=== PATIENT | female | born 1935 | race Caucasian/White ===

== ENCOUNTER 2017-05-29 20:00 | Observation (INO) ==
[2017-05-29 20:28] LABS: Basophils # 0.1 K/mm3 (0-0.2); Basophils % 0.7 % (0.1-2.0); Eosinophils # 0.2 K/mm3 (0.0-0.4); Eosinophils % 2.7 % (0.1-12.0); Hemoglobin 14.7 g/dL (12.2-16.2); Lymphocytes # 3.7 K/mm3 (0.7-4.5); Lymphocytes % 44.6 K/mm3 (10-50); Mean Corpuscular HGB Conc 32.8 g/dL (31.8-35.4); Mean Corpuscular Hemoglobin 29.3 pg (27.0-31.2); Mean Corpuscular Volume 89.4 fl (81-99); Mean Platelet Volume 8.2 fl (7.4-10.4); Monocytes # 0.4 K/mm3 (0.1-1.0); Monocytes % 5.2 % (1.7-9.3); Neutrophils # 3.9 K/mm3 (1.8-7.8); Neutrophils % 46.9 % (37.0-80.0); Platelet Count 260 K/mm3 (142-424); Red Blood Count 5.03 M/mm3 (4.20-5.40); Red Cell Distribution Width 13.1 % (11.5-17.5); White Blood Count 8.3 K/mm3 (4.8-10.8)
[2017-05-29 20:52] LABS: Alanine Aminotransferase 43 U/L (12-78); Albumin Level 3.8 gm/dL (3.4-5.0); Albumin/Globulin Ratio 0.9 (1.1-1.8); Alkaline Phosphatase 97 U/L (46-116); Aspartate Amino Transferase 37 U/L (15-37); Bilirubin,Total 0.2 mg/dL (0.2-1.0); Blood Urea Nitrogen 19 mg/dL (7-18); Calcium 9.9 mg/dL (8.5-10.1); Carbon Dioxide 27 mmol/L (21.0-32.0); Chloride 102 mmol/L (98-107); Globulin 4.2 gm/dl (1.3-3.2); Glucose 211 mg/dL (74-106); Sodium 141 mmol/L (136-145)
[2017-05-29 21:04] LABS: Creatine Kinase 103 U/L (26-192)
--- NOTE | 2017-05-29 22:16 | Emergency Department Note ---
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 The time I documented below is in addition to time spent performing reported procedures but includes the following listed in this critical care notation. Medical Decision Making - Medical Records Medical records reviewed: Yes: I reviewed the patient's medical records. - Lm Inquiry Pt receiving controlled substance: No Vital Signs: 05/29/17 20:00 Temperature 97.9 F Temperature Source Oral Pulse Rate [Right Radial] 75 Respiratory Rate 15 Blood Pressure [Right Arm] 188/83 Blood Pressure Mean [Right Arm] 118 Blood Pressure Source [Right Arm] Automatic Cuff Blood Pressure Position [Right Arm] Sitting 02 Sat by Pulse Oximetry 98 Oxygen Delivery Method Room Air - Lab Data Lab results reviewed: Yes: I reviewed the patient's lab results. Lab Results 05/29/17 20:15: WBC 8.3, RBC 5.03, Hgb 14.7, Hct 45.0, MCV 89.4, MCH 29.3, MCHC 32.8, RDW 13.1, Plt Count 260, MPV 8.2, Neut % (Auto) 46.9, Lymph % (Auto) 44.6 , [place] % (Auto) 5.2, Eos % (Auto) 2.7, Baso % (Auto) 0.7, Neut # (Auto) 3.9, Lymph # (Auto) 3.7, [place] # (Auto) 0.4, Eos # (Auto) 0.2, Baso # (Auto) 0.1 05/29/17 20:15: Sodium 141, Potassium 4.0, Chloride 102, Carbon Dioxide 27, Anion Gap 16.0 H, BUN 19 H, Creatinine 0.83, Estimated Creat Clear 43, Estimated GFR 66, Est GFR ( Amer) 80, Glucose 211 H, Calcium 9.9, Total Bilirubin 0.2, AST 37, ALT 43, Alkaline Phosphatase 97, Total Creatine Kinase 103, CK-MB (CK-2) 1.1, CK-MB (CK-2) Rel Index 1.1, Troponin I < 0.02, Total Protein 8.0, Albumin 3.8, Globulin 4.2 H, Albumin/Globulin Ratio 0.9 L Result diagrams: 05/29/17 20:15 05/29/17 20:15 Orders (Tests/Meds): ED MEDICATIONS Discontinued Medications Generic Name Dose Route Start Last Admin Trade Name Freq PRN Reason Stop Dose Admin Aspirin 324 mg 05/29/17 20:24 05/29/17 20:25 Aspirin 81mg Chewable Tablet PO 05/29/17 20:25 324 mg ONCE ONE Administration ORDERS Category Date Time Status XR chest portable Stat Exams 05/29/17 20:10 Taken ECG Request by /Brandie Stat Y 05/29/17 20:10 Ordered - Radiology Data #1 Image(s): Chest Image Reviewed: Yes I reviewed the patient's radiology image Preliminary Findings: Abnormal (cm) - ECG Data Tracing #1 I reviewed this ECG and interpreted as documented below: Normal Sinus Rhythm: Yes Ischemic changes: non-specific ST-T wave changes Chest Pain HPI - General Chief Complaint: Chest Pain Stated Complaint: chest pain Time Seen by Provider: 05/29/17 22:13 Mode of Arrival: Ambulatory Source of Information: Patient, Spouse, Medical Record Limitations: No Limitations Description of Symptoms (Recalled from ER Triage Doc. by RN): Left sided chest pain. Denies SOA, Nausea, and radiating pain - History of Present Illness HPI narrative: pt with chest pain over the last 3 days - worse today - hx of htn and cad and niddm - pain is intermittant and sharp - cath with stents 6 yrs ago complaint: chest pain indicative of cardiac Onset (ago): hour(s) Duration: intermittent Activity at onset: during rest Pain location: left chest Severity: moderate Quality: sharp Risk Factors for CAD: Hypertension, Diabetes Treatments prior to or on arrival for Cardiac Chest Pain: aspirin - JANIYA Score Non-Stemi Age of patient: 65 yrs or more Number of risk factors for CAD: Presence of 3 or more Prior coronary artery stenosis(seen in coronary angiography): Less than 50% ST-Segment deviation on ECG (more than 1 min): Absent Prior aspirin intake: ASA intake in the last 7 days Severe anginal chest pain: Two or more episodes in last 24 hours Elevated cardiac markers(CK-MB or troponin): Absent Non-Stemi Risk Score: 4 - Related Data On Oral Contraceptives: No Home Medications Medication Instructions Recorded Confirmed Amlodipine Besylate [Norvasc 5mg 5 mg PO DAILY 05/29/17 05/29/17 tablet] Aspirin [Aspirin 81mg EC Tab] 81 mg PO DAILY 05/29/17 05/29/17 Atorvastatin Calcium [Atorvastatin 20 mg PO DAILY 05/29/17 05/29/17 20mg Tab] Glimepiride [Amaryl 2mg tablet] 2 mg PO BID 05/29/17 05/29/17 Lisinopril [Lisinopril 20mg Tab] 20 mg PO BID 05/29/17 05/29/17 Allergies Allergy/AdvReac Type Severity Reaction Status Date / Time fentanyl [FENTANYL] Allergy Unknown ANXIOUS Verified 05/29/17 20:08 midazolam [From VERSED] Allergy Unknown ANXIOUS Verified 05/29/17 20:08 Penicillins [PENICILLINS] Allergy Unknown Verified 05/29/17 20:08 Quinolones [QUINOLONES] Allergy Unknown Verified 05/29/17 20:08 [facility] History I have reviewed the patient's past medical history: Yes Medical History: Reports:: Diabetes Mellitus Type 2 - Social History Alcohol Intake: never - Psychiatric History Expresses thoughts of harming self/others: None Suicide Plan Description: No Plan ROS Obtained: Yes All systems reviewed & no additional complaints - Constitutional Constitutional: Denies fever(s) - Eyes Eyes: Denies change in vision - ENT Ears, Nose, Mouth, and Throat: Denies sore throat - Cardiovascular Cardiovascular: Reports chest pain, Denies irregular heart rhythm, Denies rapid heart rate - Respiratory Respiratory: No cough, No dyspnea - Gastrointestinal Gastrointestingal: Denies: abdominal pain - Genitourinary Female Genitourinary: Denies flank pain - Musculoskeletal Musculoskeletal: Denies joint pain - Integumentary/Breasts Skin/Breast: Denies rash - Neurologic Neurologic: Denies headache(s), Denies seizure-like activity Physical Exam - General General appearance: in no apparent distress - Head Head exam: normocephalic - Eye Eye exam: Present: PERRL, EOMI - ENT ENT exam: Present: mucous membranes dry - Neck Neck exam: Present: trachea midline - Respiratory Respiratory exam: Present: normal lung sounds bilaterally. Absent: respiratory distress - Cardiovascular Cardiovascular exam: Present: regular rate, systolic murmur, +S4 - Abdominal Exam Abdominal exam: Present: soft - Extremities Exam Extremities exam: Absent: calf tenderness - Neurological Exam Neurological exam: Present: alert, oriented X3, CN II-XII intact - Psychiatric Psychiatric exam: Present: normal affect - Skin Skin exam: Absent: rash
[2017-05-30 06:50] LABS: Basophils % 0.5 % (0.1-2.0); Eosinophils # 0.2 K/mm3 (0.0-0.4); Eosinophils % 2.3 % (0.1-12.0); Hematocrit 39.9 % (37.0-47.0); Lymphocytes # 3.4 K/mm3 (0.7-4.5); Lymphocytes % 41.4 K/mm3 (10-50); Mean Corpuscular HGB Conc 32.5 g/dL (31.8-35.4); Mean Corpuscular Hemoglobin 28.7 pg (27.0-31.2); Mean Corpuscular Volume 88.2 fl (81-99); Monocytes # 0.4 K/mm3 (0.1-1.0); Monocytes % 5.2 % (1.7-9.3); Neutrophils # 4.2 K/mm3 (1.8-7.8); Neutrophils % 50.6 % (37.0-80.0); Platelet Count 230 K/mm3 (142-424); Red Blood Count 4.53 M/mm3 (4.20-5.40); Red Cell Distribution Width 13.2 % (11.5-17.5); White Blood Count 8.2 K/mm3 (4.8-10.8)
[2017-05-30 07:07] LABS: Anion Gap 11.1 mEq/L (5-15); Blood Urea Nitrogen 17 mg/dL (7-18); Carbon Dioxide 28 mmol/L (21.0-32.0); Chloride 109 mmol/L (98-107); Chol/HDL Ratio 2.7 (1-3.5); Cholesterol 117 mg/dL (140-200); Glucose 138 mg/dL (74-106); HDL Cholesterol 43 mg/dL (29-89); LDL Cholesterol 51 mg/dL (0-130); Potassium 4.1 mmoL/L (3.5-5.1); Sodium 144 mmol/L (136-145); Triglycerides 114 mg/dL (30-200); VLDL Cholesterol 23 mg/dL (0-40)
[2017-05-30 07:24] LABS: Hemoglobin 13.1 g/dL (12.2-16.2)
--- NOTE | 2017-05-30 08:23 | H&P/Discharge Summary ---
General - General Admission date: 05/29/17 Discharge date: 05/30/17 *Admission Date: 05/30/17 *Chief complaint: Chest pain *History of present illness: 82-year-old white female diabetic who has had sharp chest pain underneath the left breast for the past couple of days on and off, came to the emergency department, admitted to hospital for rule out ND. This morning she feels great , no further pain. Denied diaphoresis, denied dyspnea. Denied palpitations. [facility] History I have reviewed the patient's past medical history: Yes Medical History: Reports:: Cancer (SKIN), Diabetes Mellitus Type 2, Myocardial Infarction Denies:: Diabetes Mellitus Type 1, MRSA Other Surgeries: Yes: Appendectomy, Skin Cancer Excision Amputation: No - *Social History Educational Level: Completed High School Smoking Status: Never smoker Alcohol Intake: never Occupational Status: retired Housing: house Household Members: spouse - Psychiatric History Expresses thoughts of harming self/others: None Suicide Plan Description: No Plan *Family Hx:: Cancer, Coronary Artery Disease, Diabetes, Heart Attack, Hypertension Review of Systems - Review of Systems Review of systems:: unable to obtain, other, pertinent systems reviewed and negative unless documented below - *Neurologic Denies headache(s), Denies seizure-like activity Exam Vital signs and Labs for Last 24 Hours: Temp Pulse Resp BP Pulse Ox 97.8 F 66 16 119/49 98 05/30/17 07:46 05/30/17 07:46 05/30/17 07:46 05/30/17 07:46 05/30/17 07:46 Laboratory Results - last 24 hr 05/30/17 00:20: Troponin I < 0.02 05/30/17 02:35: Troponin I < 0.02 05/30/17 06:06: POC Glucose 130 H 05/30/17 06:11: WBC 8.2, RBC 4.53, Hgb 13.1 D, Hct 39.9, MCV 88.2, MCH 28.7, MCHC 32.5, RDW 13.2, Plt Count 230, MPV 7.0 L, Neut % (Auto) 50.6, Lymph % (Auto ) 41.4, [place] % (Auto) 5.2, Eos % (Auto) 2.3, Baso % (Auto) 0.5, Neut # (Auto) 4.2, Lymph # (Auto) 3.4, [place] # (Auto) 0.4, Eos # (Auto) 0.2, Baso # (Auto) 0.0 05/30/17 06:11: Sodium 144, Potassium 4.1, Chloride 109 H, Carbon Dioxide 28, Anion Gap 11.1, BUN 17, Creatinine 0.72, Estimated Creat Clear 44, Estimated GFR 78, Est GFR ( Amer) 94, Glucose 138 H D, Troponin I < 0.02, Triglycerides 114, Cholesterol 117 L, LDL Cholesterol 51, VLDL Cholesterol 23, HDL Cholesterol 43, Cholesterol/HDL Ratio 2.7 I & O for Last 24 hours: Intake & Output 05/27/17 05/28/17 05/29/17 05/30/17 11:59 11:59 11:59 11:59 Intake Total 302 / 302 Balance 302 / 302 - Constitutional no acute distress - *Routine HEENT Exam Head: Present: normocephalic, atraumatic ENT: Present: mucous membranes moist - *Routine Neck Exam Present: supple, full ROM - Routine Chest/Breast/Axilla Exam Chest wall: Absent: tenderness, mass Breast: Absent: tenderness - *Routine Respiratory Exam Present: CTA bilaterally. Absent: accessory muscle use - *Routine Cardiovascular Exam Present: RRR, Normal S1, Normal S2. Absent: murmur, gallop - *Routine Abdominal Exam Present: soft, normoactive bowel sounds - *Routine Neurological Exam Present: alert, oriented X3 Hospital Course Hospital Course: Patient was admitted, ruled out for ND. No pvc monitor abnormalities. This morning she feels good, has had no further pain. The character of pain is very non-anginal, and patient has an appointment on Thursday. During that appointment we will refer for stress testing. Results Labs on day of discharge: Labs from last 24 hours 05/30/17 05/30/17 05/30/17 06:11 06:11 06:06 WBC 8.2 RBC 4.53 Hgb 13.1 D Hct 39.9 MCV 88.2 MCH 28.7 MCHC 32.5 RDW 13.2 Plt Count 230 MPV 7.0 L Neut % (Auto) 50.6 Lymph % (Auto) 41.4 [place] % (Auto) 5.2 Eos % (Auto) 2.3 Baso % (Auto) 0.5 Neut # (Auto) 4.2 Lymph # (Auto) 3.4 [place] # (Auto) 0.4 Eos # (Auto) 0.2 Baso # (Auto) 0.0 Sodium 144 Potassium 4.1 Chloride 109 H Carbon Dioxide 28 Anion Gap 11.1 BUN 17 Creatinine 0.72 Estimated Creat Clear 44 Estimated GFR 78 Est GFR ( Amer) 94 Glucose 138 H D POC Glucose 130 H Troponin I < 0.02 Triglycerides 114 Cholesterol 117 L LDL Cholesterol 51 VLDL Cholesterol 23 HDL Cholesterol 43 Cholesterol/HDL Ratio 2.7 05/30/17 05/30/17 02:35 00:20 WBC RBC Hgb Hct MCV MCH MCHC RDW Plt Count MPV Neut % (Auto) Lymph % (Auto) [place] % (Auto) Eos % (Auto) Baso % (Auto) Neut # (Auto) Lymph # (Auto) [place] # (Auto) Eos # (Auto) Baso # (Auto) Sodium Potassium Chloride Carbon Dioxide Anion Gap BUN Creatinine Estimated Creat Clear Estimated GFR Est GFR ( Amer) Glucose POC Glucose Troponin I < 0.02 < 0.02 Triglycerides Cholesterol LDL Cholesterol VLDL Cholesterol HDL Cholesterol Cholesterol/HDL Ratio DS: Diagnosis - Discharge Diagnosis (1) Chest pain Status: Acute (2) Diabetes mellitus Status: Acute Discharge Medications Discharge Medications: Home Medications Medication Instructions Recorded Confirmed Type Amlodipine Besylate [Norvasc 5mg 5 mg PO DAILY 05/29/17 05/30/17 History tablet] Aspirin [Aspirin 81mg EC Tab] 81 mg PO DAILY 05/29/17 05/30/17 History Atorvastatin Calcium [Atorvastatin 20 mg PO DAILY 05/29/17 05/30/17 History 20mg Tab] Glimepiride [Amaryl 2mg tablet] 2 mg PO BID 05/29/17 05/30/17 History Lisinopril [Lisinopril 20mg Tab] 20 mg PO BID 05/29/17 05/30/17 History
== END 2017-05-30 10:00 | disposition home or self-care (01) ==
LOC: ER 20:00 → 2ND 20:00
PROVIDERS: ADMIT Emergency Medicine; ATTEND Internal Medicine Adolescent Medicine

== ENCOUNTER → 2017-06-04 12:15 | Outpatient (CLI) | payer MEDICARE, SELFPAY ==
--- NOTE | 2017-06-04 12:31 | NM_ITS ---
History and Indications: Hypertension, hyperlipidemia, diabetes. Procedure: Patient received 0.4 mg of Lexiscan, resting heart rate was 67 beats per resting blood pressure 187/86, with Lexiscan maximum heart rate achieved was 100 bpm which is less than 85% of the maximum predicted heart rate and a blood pressure was 154/77. With Lexiscan patient complained of some discomfort. Electrocardiogram: Resting electrocardiogram showed sinus rhythm, with Lexiscan there is less than 1.[address] segment depression. The EKG portion of the Lexiscan Myoview is nondiagnostic. Cardiac stress and resting SPECT images: Cardiac stress and rest SPECT images were obtained using technetium 99 Myoview 31.7 mCi at stress and 10.1 mCi at rest. Gated SPECT further analysis of segmental wall motion and calculation of the ejection fraction also done. Cardiac stress and rest SPECT images show uniform myocardial activity without any segmental perfusion abnormality, computer derived ejection fraction is over 65% with no obvious regional wall motion abnormality, right ventricle is normal size and contractility. Conclusion: 1. The EKG portion of the Lexiscan Myoview is nondiagnostic. 2. No obvious scintigraphic evidence of reversible ischemia seen, computer derived ejection fraction is over 65% with no obvious regional wall motion abnormality, right ventricle is normal size and contractility. 3. Normal Lexiscan Myoview study.
--- NOTE | 2017-06-04 14:35 | HMH.ITSHM ---
glimipride lisinopril atorvastatin amlodipine aspirin omeprazole
== END ==
PROVIDERS: PCP Internal Medicine Adolescent Medicine; Visit Provider Internal Medicine Adolescent Medicine
DX: R07.9 Chest pain, unspecified (principal)
CPT/HCPCS: 78452; 93017; A9502; J2785

== ENCOUNTER 2018-02-23 08:15 | Observation (INO) ==
--- NOTE | 2018-02-23 08:49 | Emergency Department Note ---
ED Disposition Clinical Impression: Hyponatremia Community acquired pneumonia Qualifiers: Laterality: left Lung location: lower lobe of lung Qualified Code(s): J18.1 - Lobar pneumonia, unspecified organism Disposition: Still a Patient Condition on Discharge: Good Referrals: Francisco Javier West MD [Primary Care Provider] - - Critical Care Critical Care Time: No Attestation: On 02/23/18, the high probability of a clinically significant, sudden or life threatening deterioration of the following system(s) required my full and direct attention, intervention and personal management. The time I documented below is in addition to time spent performing reported procedures but includes the following listed in this critical care notation. Medical Decision Making - Lm Inquiry Pt receiving controlled substance: No Vital Signs: 02/23/18 08:50 02/23/18 09:21 02/23/18 09:24 Temperature 100.3 F H Temperature Source Oral Pulse Rate 86 Pulse Rate [Left Radial] 94 H Respiratory Rate 24 Blood Pressure [Right Arm] 143/72 H Blood Pressure Mean [Right Arm] 95 Blood Pressure Source [Right Arm] Automatic Cuff Blood Pressure Position [Right Arm] Sitting 02 Sat by Pulse Oximetry 95 97 Oxygen Delivery Method Room Air Room Air - Lab Data Lab Results 02/23/18 08:25: Influenza Type A Ag Negative, Influenza Type B Ag Negative 02/23/18 08:45: WBC 14.6 H, RBC 4.68, Hgb 13.3, Hct 40.6, MCV 86.7, MCH 28.3, MCHC 32.7, RDW 13.1, Plt Count 235, MPV 7.3 L, Neut % (Auto) 85.3 H, Lymph % (Auto) 9.3 L, [place] % (Auto) 4.8, Eos % (Auto) 0.5, Baso % (Auto) 0.2, Neut # (Auto) 12.5 H, Lymph # (Auto) 1.4, [place] # (Auto) 0.7, Eos # (Auto) 0.1, Baso # (Auto) 0.0, Total Counted 100, Neutrophils % (Manual) 90 H, Lymphocytes % (Manual) 6 L, Monocytes % (Manual) 3, Eosinophils % (Manual) 1, Platelet Estimate Normal 02/23/18 08:45: Sodium 127 L, Potassium 4.5, Chloride 91 L, Carbon Dioxide 22, Anion Gap 18.5 H, BUN 20 H, Creatinine 0.92, Estimated Creat Clear 43, Estimated GFR 59, Est GFR ( Amer) 71, Glucose 199 H, Calcium 9.0, Total Bilirubin 0.7, AST 27, ALT 26, Alkaline Phosphatase 77, Total Protein 8.0, Albumin 3.1 L, Globulin 4.9 H, Albumin/Globulin Ratio 0.6 L 02/23/18 08:45: Lactate 1.4 Result diagrams: 02/23/18 08:45 02/23/18 08:45 Orders (Tests/Meds): ED MEDICATIONS Generic Name Dose Route Start Last Admin Trade Name Freq PRN Reason Stop Dose Admin Albuterol/Ipratropium 3 ml 02/23/18 10:00 02/23/18 09:21 Duoneb 3ml Neb IH 03/25/18 09:59 3 ml QIDRT SUZY Administration Ceftriaxone Sodium 1 gm/ 50 mls @ 100 mls/hr 02/23/18 09:15 02/23/18 09:17 Sodium Chloride IV 03/09/18 09:14 100 mls/hr 0900 SUZY Administration Protocol Azithromycin 500 mg/ Sodium 250 mls @ 250 mls/hr 02/23/18 09:15 Chloride IV 03/09/18 09:14 0900 SUZY Protocol Discontinued Medications Generic Name Dose Route Start Last Admin Trade Name Freq PRN Reason Stop Dose Admin Acetaminophen 650 mg 02/23/18 09:05 02/23/18 09:17 Acetaminophen 325mg Tab PO 02/23/18 09:06 650 mg ONCE ONE Administration ORDERS Category Date Time Status Blood Culture Stat Micro 02/23/18 08:45 Received - Radiology Data #1 Image(s): Chest Image Reviewed: Yes I reviewed the patient's radiology image LLL infiltrate - Physician Consults Physician Consulted: Dale Time: 09:36 Reason -: Admission Comment/Response: Agrees to admit the patient to the hospital. We discussed the patient's clinical information, including history, exam, laboratory and radiology results and ED course. Per hospital procedure, I will write temporary bridge inpatient orders on the patient. Specific orders requested by the adm itting physician: Sliding scale insulin, normal saline, antibiotics Medical Decision Narrative: States has a prior reaction to penicillin years ago, right side of her face s welled up. General Adult HPI - General Stated complaint: flu like symptoms Time Seen by Provider: 02/23/18 08:49 - History of Present Illness HPI narrative: 6-day history of flulike symptoms. Nonproductive cough, fevers, chills, malaise, rhinorrhea, generalized weakness. Denies chest pain. Slightly short of breath. Denies vomiting or diarrhea. Initially constipated at the onset of the illness, took a laxative and had multiple bowel movements. States had pneumonia and flu vaccines this year. - Related Data Home Medications Medication Instructions Recorded Confirmed Amlodipine Besylate [Norvasc 5mg 5 mg PO DAILY 05/29/17 02/23/18 tablet] Aspirin [Aspirin 81mg EC Tab] 81 mg PO DAILY 05/29/17 02/23/18 Atorvastatin Calcium [Atorvastatin 20 mg PO DAILY 05/29/17 02/23/18 20mg Tab] Glimepiride [Amaryl 2mg tablet] 2 mg PO BID 05/29/17 02/23/18 Lisinopril [Lisinopril 20mg Tab] 20 mg PO BID 05/29/17 02/23/18 Allergies Allergy/AdvReac Type Severity Reaction Status Date / Time Penicillins [PENICILLINS] Allergy Unknown Verified 05/29/17 20:08 Quinolones [QUINOLONES] Allergy Unknown Verified 05/29/17 20:08 epinephrine Allergy Verified 05/30/17 00:38 [facility] History - Hepatitis A Screen Attestation statement:: This patient has been screened for Hepatitis A risk factors. I have reviewed the patient's past medical history: Yes Medical History: Reports:: Cancer (SKIN), Diabetes Mellitus Type 2, Myocardial Infarction Denies:: Diabetes Mellitus Type 1, MRSA Other Surgeries: Yes: Appendectomy, Skin Cancer Excision Amputation: No - Social History Smoking Status: Never smoker Alcohol Intake: never Occupational Status: retired Housing: house Household Members: spouse Family Hx:: Cancer, Coronary Artery Disease, Diabetes, Heart Attack, Hypertension ROS Obtained: Yes All systems reviewed & no additional complaints - Constitutional Constitutional: Reports chills, Reports fever(s), Reports malaise, Reports weakness - ENT Ears, Nose, Mouth, and Throat: Reports nasal discharge, Reports other (Swollen glands left side of neck a couple days ago) - Cardiovascular Cardiovascular: Denies chest pain - Respiratory Respiratory: Yes cough, Yes dyspnea, No excessive phlegm production - Gastrointestinal Gastrointestingal: Denies: diarrhea, vomiting Physical Exam - General General appearance: alert, in no apparent distress - Head Head exam: atraumatic, normocephalic - Eye Eye exam: Present: normal appearance, PERRL, EOMI - Expanded ENT Exam Comment: 1 mm vesicle/pustule on left soft palate. - Neck Neck exam: Present: normal inspection, full ROM, trachea midline. Absent: lymphadenopathy - Chest Chest inspection: Present: normal inspection, symmetric chest wall rise - Respiratory Respiratory exam: Present: other (Crackles bases) - Cardiovascular Cardiovascular exam: Present: regular rate, normal rhythm, normal heart sounds - Abdominal Exam Abdominal exam: Present: soft - Extremities Exam Extremities exam: Present: normal inspection - Neurological Exam Neurological exam: Present: alert, oriented X3 - Psychiatric Psychiatric exam: Present: normal affect, normal mood - Skin Skin exam: Present: warm, dry
[2018-02-23 08:56] LABS: Basophils % 0.2 % (0.1-2.0); Eosinophils # 0.1 K/mm3 (0.0-0.4); Eosinophils % 0.5 % (0.1-12.0); Hematocrit 40.6 % (37.0-47.0); Hemoglobin 13.3 g/dL (12.2-16.2); Lymphocytes # 1.4 K/mm3 (0.7-4.5); Lymphocytes % 9.3 % (10-50); Mean Corpuscular HGB Conc 32.7 g/dL (31.8-35.4); Mean Corpuscular Hemoglobin 28.3 pg (27.0-31.2); Mean Corpuscular Volume 86.7 fl (81-99); Mean Platelet Volume 7.3 fl (7.4-10.4); Monocytes # 0.7 K/mm3 (0.1-1.0); Monocytes % 4.8 % (1.7-9.3); Neutrophils # 12.5 K/mm3 (1.8-7.8); Neutrophils % 85.3 % (37.0-80.0); Platelet Count 235 K/mm3 (142-424); Red Blood Count 4.68 M/mm3 (4.20-5.40); Red Cell Distribution Width 13.1 % (11.5-17.5); White Blood Count 14.6 K/mm3 (4.8-10.8)
[2018-02-23 09:08] LABS: Albumin Level 3.1 gm/dL (3.4-5.0); Albumin/Globulin Ratio 0.6 (1.1-1.8); Anion Gap 18.5 mEq/L (5-15); Bilirubin,Total 0.7 mg/dL (0.2-1.0); Globulin 4.9 gm/dl (1.3-3.2); Potassium 4.5 mmoL/L (3.5-5.1)
[2018-02-23 09:24] LABS: Eosinophils % 1 % (0-3); Lymphocytes % 6 % (10-50); Monocytes % 3 % (2-9); Neutrophils % 90 % (42-76); Total Cells Counted 100
--- NOTE | 2018-02-23 15:14 | History & Physical Report ---
*Admission Date: 02/23/18 *Chief complaint: SOA, cough *History of present illness: Ms. noguera is a pleasant 82-year-old female with a history artery disease, hypertension, diabetes (not on insulin) who presents with 1 week of worsening cough, shortness of breath, fatigue. Upon presentation to the ED she was noted to have crackles. Chest x-ray obtained showing pneumonia. Admitted for management of her pneumonia due to her age, white count, shortness of breath. Denied any other symptoms, dizziness fatigue, productive cough, significant fever, nausea or vomiting, diarrhea. [facility] History I have reviewed the patient's past medical history: Yes Medical History: Reports:: Cancer (skin), Coronary Artery Disease, Diabetes Mellitus Type 2, Hyperlipidemia, Hypertension, Myocardial Infarction Denies:: Diabetes Mellitus Type 1, MRSA Have you ever received a pneumonia vaccine?: Yes Have you received a flu vaccine this season?: Yes Other Surgeries: Yes: Appendectomy, Skin Cancer Excision Amputation: No Fractures: No - *Social History Educational Level: Completed High School Smoking Status: Never smoker Alcohol Intake: never Occupational Status: retired Housing: house Household Members: spouse Travel in the last 8 weeks: None - Psychiatric History Expresses thoughts of harming self/others: None Suicide Plan Description: No Plan *Family Hx:: Cancer, Coronary Artery Disease, Diabetes, Heart Attack, Hypertension Review of Systems - Review of Systems Review of systems:: pertinent systems reviewed and negative unless documented below - *Neurologic Reports weakness Meds Home Medications Medication Instructions Recorded Confirmed Type Amlodipine Besylate [Norvasc 5mg 5 mg PO DAILY 05/29/17 02/23/18 History tablet] Aspirin [Aspirin 81mg EC Tab] 81 mg PO DAILY 05/29/17 02/23/18 History Atorvastatin Calcium [Atorvastatin 20 mg PO DAILY 05/29/17 02/23/18 History 20mg Tab] Glimepiride [Amaryl 2mg tablet] 2 mg PO BID 05/29/17 02/23/18 History Lisinopril [Lisinopril 20mg Tab] 20 mg PO BID 05/29/17 02/23/18 History Allergies Allergy/AdvReac Type Severity Reaction Status Date / Time Penicillins [PENICILLINS] Allergy Unknown Verified 02/23/18 13:58 Quinolones [QUINOLONES] Allergy Unknown Verified 02/23/18 13:58 epinephrine Allergy Verified 02/23/18 13:58 Exam Vital signs and Labs for Last 24 Hours: Temp Pulse Resp BP Pulse Ox 98.1 F 81 18 125/65 94 L 02/23/18 13:36 02/23/18 13:36 02/23/18 13:36 02/23/18 13:36 02/23/18 14:05 Laboratory Results - last 24 hr 02/23/18 08:25: Influenza Type A Ag Negative, Influenza Type B Ag Negative 02/23/18 08:45: WBC 14.6 H, RBC 4.68, Hgb 13.3, Hct 40.6, MCV 86.7, MCH 28.3, MCHC 32.7, RDW 13.1, Plt Count 235, MPV 7.3 L, Neut % (Auto) 85.3 H, Lymph % (Auto) 9.3 L, [place] % (Auto) 4.8, Eos % (Auto) 0.5, Baso % (Auto) 0.2, Neut # (Auto) 12.5 H, Lymph # (Auto) 1.4, [place] # (Auto) 0.7, Eos # (Auto) 0.1, Baso # (Auto) 0.0, Total Counted 100, Neutrophils % (Manual) 90 H, Lymphocytes % (Manual) 6 L, Monocytes % (Manual) 3, Eosinophils % (Manual) 1, Platelet Estimate Normal 02/23/18 08:45: Sodium 127 L, Potassium 4.5, Chloride 91 L, Carbon Dioxide 22, A nion Gap 18.5 H, BUN 20 H, Creatinine 0.92, Estimated Creat Clear 43, Estimated GFR 59, Est GFR ( Amer) 71, Glucose 199 H, Calcium 9.0, Total Bilirubin 0.7, AST 27, ALT 26, Alkaline Phosphatase 77, Total Protein 8.0, Albumin 3.1 L, Globulin 4.9 H, Albumin/Globulin Ratio 0.6 L 02/23/18 08:45: Lactate 1.4 I & O for Last 24 hours: Intake & Output 02/20/18 02/21/18 02/22/18 02/23/18 23:59 23:59 23:59 23:59 Intake Total 240 / 240 Balance 240 / 240 Weight 61.235 kg - Constitutional mild distress, thin Comments: Elderly - *Routine HEENT Exam Head: Present: normocephalic, atraumatic Eye: Present: EOMI, PERRL ENT: Present: mucous membranes moist - *Routine Neck Exam Present: supple. Absent: lymphadenopathy - *Routine Respiratory Exam Present: crackles Comments: Bilateral lower lobe crackles, more prominent on the left, rhonchi right middle lobe - *Routine Cardiovascular Exam Present: RRR, Normal S1. Absent: murmur - *Routine Abdominal Exam Present: soft, normoactive bowel sounds. Absent: tenderness - *Routine Rectal Exam Patient deferred: visual exam - *Routine Exam Patient deferred: external exam - *Routine Extremities Exam Absent: cyanosis, clubbing, edema - *Routine Skin Exam Present: intact. Absent: cyanosis, erythema - *Routine Neurological Exam Present: alert, oriented X3. Absent: altered mental status H&P: Result - Imaging and Cardiology Chest x-ray Status: image reviewed by me Additional comments: Left lower lobe airspace disease Assessment and Plan (1) Hypertension Current visit: Yes Status: Chronic Qualifiers: Hypertension type: essential hypertension Qualified Code(s): I10 - Essential (primary) hypertension Category: Medical Code(s): I10 - Essential (primary) hypertension Continue home regimen of amlodipine and lisinopril. (2) Hyperlipidemia Current visit: Yes Status: Chronic Qualifiers: Hyperlipidemia type: familial hypercholesterolemia Qualified Code(s): E78.01 - Familial hypercholesterolemia Category: Medical Code(s): E78.5 - Hyperlipidemia, unspecified Continue patient's home statin (3) Community acquired pneumonia Current visit: Yes Status: Acute Qualifiers: Laterality: left Lung location: lower lobe of lung Qualified Code(s): J18.1 - Lobar pneumonia, unspecified organism Category: Medical Code(s): J18.9 - Pneumonia, unspecified organism Changes present on exam with crackles, findings on chest x-ray consistent with left lower lobe pneumonia. Initiated ceftriaxone and azithromycin. Currently stable on room air.. If improves overnight, will transition to oral antibiotic therapy with possible discharge home tomorrow afternoon (4) Diabetes mellitus Current visit: No Status: Acute Qualifiers: Diabetes mellitus type: type 2 Diabetes mellitus penitentiary insulin use: with termite technician use Diabetes mellitus complication status: with unspecified complications Qualified Code(s): E11.8 - Type 2 diabetes mellitus with unspecified complications; Z79.4 - long term care administrator (current) use of insulin Category: Medical Code(s): E11.9 - Type 2 diabetes mellitus without complications Holding home oral anti-hyperglycemic agents, initiate sliding scale insulin with fingersticks before meals and at bedtime. (5) Hyponatremia Current visit: Yes Status: Acute Category: Medical Code(s): E87.1 - Hypo- osmolality and hyponatremia Suspect due to being slightly dehydrated, - administer normal saline rehydration. -Assess for improvement in the morning -No neurologic signs at this time (6) Sepsis Current visit: Yes Status: Acute Qualifiers: Sepsis type: sepsis due to unspecified organism Qualified Code(s): A41.9 - Sepsis, unspecified organism Category: Medical Code(s): A41.9 - Sepsis, unspecified organism Likely due to pneumonia with tachycardia greater than 90 on admission, leukocytosis, and source with pneumonia. -Antibiotic initiated -Blood cultures -Getting fluid resuscitation
[2018-02-23 18:44] LABS: Coronavirus 229E Not Detected (NotDetected); Coronavirus NL63 Not Detected (NotDetected); Coronavirus OC43 Not Detected (NotDetected); Coronovirus HKU1,PCR Not Detected (NotDetected)
--- NOTE | 2018-02-24 07:48 | Pharmacy Consult Notes ---
[facility] Pharmacy VTE Monitoring - Patient Demographics Admission date: 02/23/18 Report Date: 02/24/18 Time: 07:47 Allergies/Adverse Reactions: Patient Allergies Penicillins [PENICILLINS] Allergy (Unknown, Verified 02/23/18 13:58) Quinolones [QUINOLONES] Allergy (Unknown, Verified 02/23/18 13:58) epinephrine Allergy (Verified 02/23/18 13:58) Height: 1.6 m Weight: 61.235 kg Patient Problems: Current Active Problems Community acquired pneumonia (Acute) Hyponatremia (Acute) Hypertension (Chronic) Hyperlipidemia (Chronic) Hyponatremia (Acute) Sepsis (Acute) - VTE Risk Labs: VTE Related Lab Results Hgb 13.3 g/dL (12.2-16.2) 02/23/18 08:45 Hct 40.6 % (37.0-47.0) 02/23/18 08:45 Plt Count 235 K/mm3 (142-424) 02/23/18 08:45 BUN 20 mg/dL (7-18) H 02/23/18 08:45 Creatinine 0.92 mg/dL (0.55-1.02) 02/23/18 08:45 Estimated Creat Clear 43 mL/min (50-200) 02/23/18 08:45 Was VTE Risk Assessment Performed: Yes VTE Score: 2 VTE Risk Level: Low Risk - Prophylaxis VTE Prophylaxis Ordered?: Yes Types of VTE Prophylaxis: TEDS Knee High Location of Applied Device: Bilateral Lower Extremeties - VTE Diagnosis Confirmed Treatment or plan recommended: Continue Current Treatment
--- NOTE | 2018-02-24 08:03 | Discharge Summary ---
General - General Admission date:: 02/24/18 Discharge date: 02/24/18 HPI HPI: Ms. noguera is a pleasant 82-year-old female with a history artery disease, hypertension, diabetes (not on insulin) who presents with 1 week of worsening cough, shortness of breath, fatigue. Upon presentation to the ED she was noted to have crackles. Chest x-ray obtained showing pneumonia. Admitted for management of her pneumonia due to her age, white count, shortness of breath. Denied any other symptoms, dizziness fatigue, productive cough, significant fever, nausea or vomiting, diarrhea. Hospital Course Hospital Course: Patient was admitted, noted a left lower lobe pneumonia and stone stand community acquired pneumonia protocol. Patient had coughing out of proportion to sputum production. This prompted me to order an upper respiratory PCR test which the presence of RSV Influenza testing both in the rapid serologic test and in the CR test is negative Interestingly she reports that her had a febrile this 2 weeks ago now he has had lots of coughing as well in a very similar illness pattern. Patient improved night, this morning has no oxygen requirement. Eating and drinking well. Continued crackles and rhonchi in the left lower lung field but good air movement and stabilize vital signs. We will monitor her labs this morning. Plan for discharge and close follow-up in the office. Given her infiltrate we will treat with oral antibiotics for standard community acquired pneumonia protocols but I have discussed with the etiology of RAD and her need for fluid support, rest and nutritional support at home. Objective Vital signs: Temp Pulse Resp BP Pulse Ox 98.3 F 84 18 100/45 L 95 02/24/18 04:00 02/24/18 06:17 02/24/18 04:00 02/24/18 04:00 02/24/18 06:17 Narrative: Alert. Oriented x3. Sitting on the side of the bed. Eating and drinking well. No calf room air oxygen in the mid 90% range. Vital signs are normal. Heart rate regular. Oropharynx moist no cranial nerve deficit. Abdomen soft. Lungs have rhonchi and some minimal expiry crackles at end expiration on the left lower lung field. Right side is fairly clear. No clubbing cyanosis. Results Labs on day of discharge: Labs from last 24 hours 02/24/18 02/23/18 02/23/18 06:19 20:55 18:40 WBC RBC Hgb Hct MCV MCH MCHC RDW Plt Count MPV Neut % (Auto) Lymph % (Auto) [place] % (Auto) Eos % (Auto) Baso % (Auto) Neut # (Auto) Lymph # (Auto) [place] # (Auto) Eos # (Auto) Baso # (Auto) Total Counted Neutrophils % (Manual) Lymphocytes % (Manual) Monocytes % (Manual) Eosinophils % (Manual) Platelet Estimate Sodium Potassium Chloride Carbon Dioxide Anion Gap BUN Creatinine Estimated Creat Clear Estimated GFR Est GFR ( Amer) Glucose POC Glucose 147 H 160 H Lactate Calcium Total Bilirubin AST ALT Alkaline Phosphatase Total Protein Albumin Globulin Albumin/Globulin Ratio Chlamy pneumoniae PCR Not detected Adenovirus (PCR) Not detected B. pertussis DNA (PCR) Not detected Coronavirus OC43 (PCR) Not detected Coronavirus HKU1 (PCR) Not detected Coronavirus 229E (PCR) Not detected Coronavirus NL63 (PCR) Not detected Human Metapneumovir PCR Not detected Influenza A (H1) PCR Not detected Influ A (H1N1/09) PCR Not detected Influenza A (H3) PCR Not detected Influenza Type A Ag Influenza Type A (PCR) Not detected Influenza Type B Ag Influenza Type B (PCR) Not detected Mycoplasma pneumon IgM M. pneumoniae (PCR) Not detected Parainfluenza 1 (PCR) Not detected Parainfluenza 2 (PCR) Not detected Parainfluenza 3 (PCR) Not detected Parainfluenza 4 (PCR) Not detected RSV (PCR) Detected A Entero/Rhino (PCR) Not detected 02/23/18 02/23/18 02/23/18 16:08 08:45 08:45 WBC RBC Hgb Hct MCV MCH MCHC RDW Plt Count MPV Neut % (Auto) Lymph % (Auto) [place] % (Auto) Eos % (Auto) Baso % (Auto) Neut # (Auto) Lymph # (Auto) [place] # (Auto) Eos # (Auto) Baso # (Auto) Total Counted Neutrophils % (Manual) Lymphocytes % (Manual) Monocytes % (Manual) Eosinophils % (Manual) Platelet Estimate Sodium Potassium Chloride Carbon Dioxide Anion Gap BUN Creatinine Estimated Creat Clear Estimated GFR Est GFR ( Amer) Glucose POC Glucose 279 H Lactate 1.4 Calcium Total Bilirubin AST ALT Alkaline Phosphatase Total Protein Albumin Globulin Albumin/Globulin Ratio Chlamy pneumoniae PCR Adenovirus (PCR) B. pertussis DNA (PCR) Coronavirus OC43 (PCR) Coronavirus HKU1 (PCR) Coronavirus 229E (PCR) Coronavirus NL63 (PCR) Human Metapneumovir PCR Influenza A (H1) PCR Influ A (H1N1/) PCR Influenza A (H3) PCR Influenza Type A Ag Influenza Type A (PCR) Influenza Type B Ag Influenza Type B (PCR) Mycoplasma pneumon IgM Non-reactive M. pneumoniae (PCR) Parainfluenza 1 (PCR) Parainfluenza 2 (PCR) Parainfluenza 3 (PCR) Parainfluenza 4 (PCR) RSV (PCR) Entero/Rhino (PCR) 02/23/18 02/23/18 02/23/18 08:45 08:45 08:25 WBC 14.6 H RBC 4.68 Hgb 13.3 Hct 40.6 MCV 86.7 MCH 28.3 MCHC 32.7 RDW 13.1 Plt Count 235 MPV 7.3 L Neut % (Auto) 85.3 H Lymph % (Auto) 9.3 L [place] % (Auto) 4.8 Eos % (Auto) 0.5 Baso % (Auto) 0.2 Neut # (Auto) 12.5 H Lymph # (Auto) 1.4 [place] # (Auto) 0.7 Eos # (Auto) 0.1 Baso # (Auto) 0.0 Total Counted 100 Neutrophils % (Manual) 90 H Lymphocytes % (Manual) 6 L Monocytes % (Manual) 3 Eosinophils % (Manual) 1 Platelet Estimate Normal Sodium 127 L Potassium 4.5 Chloride 91 L Carbon Dioxide 22 Anion Gap 18.5 H BUN 20 H Creatinine 0.92 Estimated Creat Clear 43 Estimated GFR 59 Est GFR ( Amer) 71 Glucose 199 H POC Glucose Lactate Calcium 9.0 Total Bilirubin 0.7 AST 27 ALT 26 Alkaline Phosphatase 77 Total Protein 8.0 Albumin 3.1 L Globulin 4.9 H Albumin/Globulin Ratio 0.6 L Chlamy pneumoniae PCR Adenovirus (PCR) B. pertussis DNA (PCR) Coronavirus OC43 (PCR) Coronavirus HKU1 (PCR) Coronavirus 229E (PCR) Coronavirus NL63 (PCR) Human Metapneumovir PCR Influenza A (H1) PCR Influ A (H1N1/09) PCR Influenza A (H3) PCR Influenza Type A Ag Negative Influenza Type A (PCR) Influenza Type B Ag Negative Influenza Type B (PCR) Mycoplasma pneumon IgM M. pneumoniae (PCR) Parainfluenza 1 (PCR) Parainfluenza 2 (PCR) Parainfluenza 3 (PCR) Parainfluenza 4 (PCR) RSV (PCR) Entero/Rhino (PCR) DS: Diagnosis - Discharge Diagnosis (1) Hypertension Status: Chronic (2) Hyperlipidemia Status: Chronic (3) Community acquired pneumonia Status: Acute (4) Diabetes mellitus Status: Chronic (5) Hyponatremia Status: Acute (6) Sepsis Status: Ruled-out (7) RSV bronchiolitis Status: Acute Discharge Plan - Patient Discharge Instructions ACTIVITY: Continue current activity, Limited activity DIET: continue same diet Patient Instructions: Pneumonia-Adult, Hyponatremia-Adult - Follow up Plan Follow up with: Crys Sherman APRN [Nurse Practitioner] - 03/03/18 Disposition: Home, Self-Long-Term Medications: Home Medications Medication Instructions Recorded Confirmed Type Amlodipine Besylate [Norvasc 5mg 5 mg PO DAILY 05/29/17 02/23/18 History tablet] Aspirin [Aspirin 81mg EC Tab] 81 mg PO DAILY 05/29/17 02/23/18 History Atorvastatin Calcium [Atorvastatin 20 mg PO DAILY 05/29/17 02/23/18 History 20mg Tab] Glimepiride [Amaryl 2mg tablet] 2 mg PO BID 05/29/17 02/23/18 History Lisinopril [Lisinopril 20mg Tab] 20 mg PO BID 05/29/17 02/23/18 History Azithromycin [Zithromax 250mg 250 mg PO DIRECTED #6 tab 02/24/18 Rx tab] Cefdinir [Omnicef 300mg Capsule] 300 mg PO BID #14 cap 02/24/18 Rx Promethazine/Dextromethorphan 5 ml PO Q6HP PRN #240 ml 02/24/18 Rx [Promethazine-Dm Syrup] Prescriptions/Medication Reconciliation: New Azithromycin [Zithromax 250mg tab] 250 mg PO DIRECTED #6 tab Cefdinir [Omnicef 300mg Capsule] 300 mg PO BID #14 cap Promethazine/Dextromethorphan [Promethazine-Dm Syrup] 5 ml PO Q6HP PRN #240 ml PRN Reason: Cough Continue Lisinopril [Lisinopril 20mg Tab] 20 mg PO BID Glimepiride [Amaryl 2mg tablet] 2 mg PO BID Amlodipine Besylate [Norvasc 5mg tablet] 5 mg PO DAILY Aspirin [Aspirin 81mg EC Tab] 81 mg PO DAILY Atorvastatin Calcium [Atorvastatin 20mg Tab] 20 mg PO DAILY
[2018-02-24 08:05] LABS: Anion Gap 17.5 mEq/L (5-15); Calcium 8.2 mg/dL (8.5-10.1); Potassium 3.5 mmoL/L (3.5-5.1)
[2018-02-24 09:33] LABS: Basophils % 0.2 % (0.1-2.0); Eosinophils % 0.2 % (0.1-12.0); Hematocrit 35.2 % (37.0-47.0); Hemoglobin 11.2 g/dL (12.2-16.2); Lymphocytes # 1.4 K/mm3 (0.7-4.5); Lymphocytes % 11.7 % (10-50); Mean Corpuscular HGB Conc 31.9 g/dL (31.8-35.4); Mean Corpuscular Hemoglobin 28.3 pg (27.0-31.2); Mean Corpuscular Volume 88.7 fl (81-99); Mean Platelet Volume 7.3 fl (7.4-10.4); Monocytes # 0.7 K/mm3 (0.1-1.0); Monocytes % 5.8 % (1.7-9.3); Neutrophils # 9.9 K/mm3 (1.8-7.8); Neutrophils % 82.2 % (37.0-80.0); Platelet Count 254 K/mm3 (142-424); Red Blood Count 3.97 M/mm3 (4.20-5.40); Red Cell Distribution Width 13.2 % (11.5-17.5); White Blood Count 12.1 K/mm3 (4.8-10.8)
== END 2018-02-24 10:58 | disposition home or self-care (01) ==
LOC: ICU 08:15 → ER 08:15 → ICU 13:14
PROVIDERS: ADMIT Internal Medicine Adolescent Medicine; ATTEND Internal Medicine Adolescent Medicine
CPT/HCPCS: 36415; 71020; 71046; 80048; 80053; 82962; 83605; 85007; 85025; 86738; 87040; 87070; 87205; 87275; 87276; 87486; 87581; 87633; 87798; 94640; 96365; 96367; 99284; G0378; J0456

== ENCOUNTER → 2018-03-18 16:55 | Outpatient (CLI) | payer MEDICARE, SELFPAY ==
--- NOTE | 2018-03-18 17:15 | XR_ITS ---
XR chest 2V HISTORY: ITS.REASON: WHEEZING ORDERING PHYSICIAN: Mirtha Hope PATIENT AGE: 82 years COMPARISON: 02/23/2018 FINDINGS: The cardiomediastinal silhouette and pulmonary vascularity are within normal limits. Chronic changes are present in the lung bases. No lobar consolidation or collapse. No acute bony anomalies. IMPRESSION: No change acute finding
[2018-03-18 17:20] LABS: Basophils # 0.1 K/mm3 (0-0.2); Basophils % 0.7 % (0.1-2.0); Eosinophils # 0.3 K/mm3 (0.0-0.4); Hematocrit 42.9 % (37.0-47.0); Hemoglobin 13.8 g/dL (12.2-16.2); Lymphocytes # 3.6 K/mm3 (0.7-4.5); Lymphocytes % 41.9 % (10-50); Mean Corpuscular HGB Conc 32.1 g/dL (31.8-35.4); Mean Corpuscular Hemoglobin 28.2 pg (27.0-31.2); Mean Corpuscular Volume 87.9 fl (81-99); Mean Platelet Volume 6.6 fl (7.4-10.4); Monocytes # 0.5 K/mm3 (0.1-1.0); Monocytes % 5.3 % (1.7-9.3); Neutrophils # 4.2 K/mm3 (1.8-7.8); Neutrophils % 49.2 % (37.0-80.0); Platelet Count 260 K/mm3 (142-424); Red Blood Count 4.87 M/mm3 (4.20-5.40); Red Cell Distribution Width 13.3 % (11.5-17.5); White Blood Count 8.6 K/mm3 (4.8-10.8)
[2018-03-18 18:45] LABS: Anion Gap 13.1 mEq/L (5-15); Blood Urea Nitrogen 20 mg/dL (7-18); Calcium 9.6 mg/dL (8.5-10.1); Carbon Dioxide 29 mmol/L (21.0-32.0); Chloride 101 mmol/L (98-107); Creatinine,Serum 0.81 mg/dL (0.55-1.02); Estimated Glomerular Filt Rate 68 ml/min (>60); GFR (African American) 82 ML/MIN (>60); Glucose 185 mg/dL (74-106); Potassium 4.1 mmoL/L (3.5-5.1); Sodium 139 mmol/L (136-145)
== END ==
PROVIDERS: Visit Provider Nurse Practitioner Family
DX: R06.2 Wheezing (principal)
CPT/HCPCS: 36415; 71046; 80048; 85025

== ENCOUNTER → 2020-09-11 10:49 | Outpatient (CLI) | payer MEDICARE, SELFPAY ==
[2020-09-11 11:14] LABS: Basophils # 0.1 K/mm3 (0-0.2); Basophils % 0.6 % (0.1-2.0); Eosinophils # 0.2 K/mm3 (0.0-0.4); Eosinophils % 2.8 % (0.1-12.0); Hematocrit 44.6 % (37.0-47.0); Hemoglobin 14.9 g/dL (12.2-16.2); Lymphocytes # 3.1 K/mm3 (0.7-4.5); Lymphocytes % 38.6 % (10-50); Mean Corpuscular HGB Conc 33.4 g/dL (31.8-35.4); Mean Corpuscular Hemoglobin 29.1 pg (27.0-31.2); Mean Platelet Volume 7.4 fl (7.4-10.4); Monocytes # 0.4 K/mm3 (0.1-1.0); Monocytes % 4.9 % (1.7-9.3); Neutrophils # 4.2 K/mm3 (1.8-7.8); Platelet Count 246 K/mm3 (142-424); Red Blood Count 5.13 M/mm3 (4.20-5.40); Red Cell Distribution Width 13.6 % (11.5-17.5); White Blood Count 7.9 K/mm3 (4.8-10.8)
[2020-09-11 11:17] LABS: Hemoglobin A1C 6.6 % (4.0-6.0)
[2020-09-11 11:35] LABS: Chloride 106 mmol/L (98-107); Sodium 141 mmol/L (136-145)
[2020-09-11 11:36] LABS: Potassium 4.4 mmoL/L (3.5-5.1)
[2020-09-11 11:38] LABS: Alanine Aminotransferase 22 U/L (12-78); Albumin Level 4.3 g/dl (3.5-5.0); Albumin/Globulin Ratio 1.5 (1.1-1.8); Alkaline Phosphatase 80 U/L (38-126); Anion Gap 13.4 mEq/L (5-15); Aspartate Amino Transferase 31 U/L (14-36); Bilirubin,Total 0.4 mg/dl (0.2-1.3); Blood Urea Nitrogen 12 mg/dl (7-17); Calcium 9.3 mg/dl (8.4-10.2); Carbon Dioxide 26 mmol/L (22.0-30.0); Chol/HDL Ratio 2.9 (1-3.5); Cholesterol 133 mg/dl (140-200); Estimated Glomerular Filt Rate 80 ml/min (>60); GFR (African American) 97 ML/MIN (>60); Globulin 2.9 g/dL (1.3-3.2); Glucose 125 mg/dl (74-100); HDL Cholesterol 46 mg/dl (40-60); Total Protein,Serum 7.2 g/dl (6.3-8.2); Triglycerides 140 mg/dl (30-150); VLDL Cholesterol 28 mg/dL (0-40)
[2020-09-11 11:49] LABS: Direct LDL Cholesterol 58.49 mg/dL (100-129)
[2020-09-11 12:09] LABS: Thyroid Stimulating Hormone 2.02 uIU/mL (0.465-4.68)
== END ==
PROVIDERS: Visit Provider Internal Medicine Adolescent Medicine
DX: E78.2 Mixed hyperlipidemia (principal); E11.9 Type 2 diabetes mellitus without complications; Z79.84 Long term (current) use of oral hypoglycemic drugs
CPT/HCPCS: 36415; 80053; 80061; 83036; 84443; 85025

== ENCOUNTER → 2020-12-11 10:37 | Outpatient (CLI) | payer MEDICARE, SELFPAY ==
[2020-12-11 11:04] LABS: Basophils # 0.1 K/mm3 (0-0.2); Basophils % 1.1 % (0.1-2.0); Eosinophils # 0.2 K/mm3 (0.0-0.4); Eosinophils % 1.8 % (0.1-12.0); Hematocrit 47.6 % (37.0-47.0); Lymphocytes # 3.3 K/mm3 (0.7-4.5); Mean Corpuscular HGB Conc 31.6 g/dL (31.8-35.4); Mean Corpuscular Hemoglobin 28.7 pg (27.0-31.2); Mean Corpuscular Volume 90.7 fl (81-99); Monocytes # 0.4 K/mm3 (0.1-1.0); Monocytes % 4.7 % (1.7-9.3); Neutrophils # 4.2 K/mm3 (1.8-7.8); Neutrophils % 51.4 % (37.0-80.0); Platelet Count 281 K/mm3 (142-424); Red Blood Count 5.24 M/mm3 (4.20-5.40); Red Cell Distribution Width 13.5 % (11.5-17.5); White Blood Count 8.1 K/mm3 (4.8-10.8)
[2020-12-11 11:24] LABS: Hemoglobin A1C 7.1 % (4.0-6.0)
[2020-12-11 11:47] LABS: Chloride 106 mmol/L (98-107); Potassium 4.9 mmoL/L (3.5-5.1); Sodium 140 mmol/L (136-145)
[2020-12-11 11:49] LABS: Blood Urea Nitrogen 19 mg/dl (7-17); Estimated Glomerular Filt Rate 95 ml/min (>60); GFR (African American) 116 ML/MIN (>60)
[2020-12-11 11:50] LABS: Alanine Aminotransferase 18 U/L (12-78); Albumin Level 4.3 g/dl (3.5-5.0); Albumin/Globulin Ratio 1.3 (1.1-1.8); Alkaline Phosphatase 105 U/L (38-126); Anion Gap 12.9 mEq/L (5-15); Aspartate Amino Transferase 29 U/L (14-36); Carbon Dioxide 26 mmol/L (22.0-30.0); Globulin 3.3 g/dL (1.3-3.2); Glucose 153 mg/dl (74-100); Total Protein,Serum 7.6 g/dl (6.3-8.2)
[2020-12-11 11:51] LABS: Bilirubin,Total 0.1 mg/dl (0.2-1.3)
== END ==
PROVIDERS: Visit Provider Internal Medicine Adolescent Medicine
DX: E11.9 Type 2 diabetes mellitus without complications (principal); Z79.84 Long term (current) use of oral hypoglycemic drugs
CPT/HCPCS: 36415; 80053; 83036; 85025

== ENCOUNTER → 2021-07-24 12:09 | Outpatient (CLI) | payer MEDICARE, SELFPAY ==
--- NOTE | 2021-07-24 | CA_ITS ---
APPROVED REPORT Exam: Pharmacologic Technologist: Destinee Eastman, Ht: 5 ft 3 in Wt: 118 lbs BSA: 1.54 m2 HR: 73 bpm BP: 170/71 mmHg Rhythm: NSR, SLOW R WAVE PROGRESSION Medical History Medical History: HTN, Hyperlipidemia, Diabetes Medications: Amlodipine,,,,, Lisinopril,,,,, Asa,,,,, Atorvastatin,,,,, Glimepiride,,,,, Allergies: PENICILLIN, QUINOLONES, EPINEPHRINE Cardiac Risk Factors: HTN, Hyperlipidemia, Diabetes Stress Test Details Test: LEXISCAN HR Resting HR: 70 bpm Max Heart Rate (APMHR): 136.302944 bpm Max HR Achieved: 105 bpm Target HR (85% APMHR): 115.709857 bpm % of APMHR: 77.21 Recovery HR: 75 bpm BP Resting BP: 170/71 mmHg Max BP: 170/71 mmHg Recovery BP: 163.0/73.0 mmHg ECG Resting ECG: NSR, SLOW R WAVE PROGRESSION Clinical Exercise duration: 04:01 min Highest Stage Achieved: Stress ECG Conclusion PT BECAME SOA, MALAISE 1 MINUTE RECOVERY: AMINOPHYLIINE 100 MG SLOW IV GIVEN 2 MINUTE RECOVERY: PT FEELS BETTER 5 MINUTE RECOVERY: SHAKEY BUT OTHERWISE FEELS OK NO CP. NO SIGNIFICANT CHANGES UNREMARKABLE LEXISCAN STRESS MYOVIEW IMAGES REPORTED SEPARATELY Electronically signed by : Amaury Ly MD 07/24/2021 17:18:32
--- NOTE | 2021-07-24 12:17 | NM_ITS ---
APPROVED REPORT Exam: Nuclear Stress Test Indication: short of breath..fatigue Patient Location: Outpatient Stress Tech: Destinee Eastman MA Tech:Milady See ARRT, RT (R)(N) Ht: 5 ft 3 in Wt: 118 lbs Bra Size: 38b HR: 70 bpm BP: 170/71 mmHg BSA: 1.54 m2 TID: 0.86 BMI: 20.9 History: short of breath..fatigue Procedure: Patient received a 0.4 mg of intravenous Lexiscan, resting heart rate 70 bpm, resting blood pressure 170/71 mmHg, with Lexiscan maximum heart rate achived was 105 bpm which is Less than 85 % of the maximum predicted heart rate and blood pressure was 170/71 mmHg. With Lexiscan, patient denied any complaint of chest pain. Electrocardiogram Resting electrocardiogram shows sinus rhythm, with Lexiscan there is less than 1.[address] segment depression from the baseline EKG. The EKG portion of the Lexiscan is nondiagnostic. Cardiac Stress and Resting SPECT Images: Cardiac Stress and Resting SPECT images were obtained using technetium 99m Myoview 32.4 mCi stress and 10.81 mCi at rest. Gated SPECT for analysis of segmental wall motion and calculation of the ejection fraction also done. Cardiac stress and resting SPECT images show uniform myocardial activity without segmental perfusion abnormality, computer derived ejection fraction is over 65% with no regional wall motion abnormality, right ventricle is mildly enlarged with normal contractility. Conclusion: 1. The EKG portion of the Lexiscan is nondiagnostic. 2. No scintigraphic evidence of reversible ischemia seen, computer derived ejection fraction is over 65% with no regional wall motion abnormality, right ventricle is mildly enlarged with normal contractility. 3. Normal Lexiscan Myoview study. Electronically signed by : Amaury Ly MD 07/24/2021 17:21:28
--- NOTE | 2021-07-24 12:50 | CA_ITS ---
APPROVED REPORT EXAM: Comprehensive 2D, Doppler, and color-flow Echocardiogram Copy Director: Alexandra Ayon RVT Ht: 5 ft 3 in Wt: 118lbs BSA: 1.54 BP: 160/60 mmHg Indications: SOA,CAD,ABN EKG,FATIGUE,DIZZINESS,DM,HTN 2D Dimensions LVOT 1.93 cm (M/F) 1.5-2.5 M-Mode Dimensions RVDd 2.55 cm (0.9-2.6) LA Diam 3.23 cm (1.9-4.0) LVDd 3.96 cm (3.5-5.7) Ao Diam 2.47 cm (2.0-3.7) LVDs 2.55 cm (3.5-5.7) IVSd 1.11 cm (0.6-1.1) PWd 0.57 cm (0.6-1.1) EF (Teich) 65.70% FS 35.60% EDV (Teich) 68.30 mL TAPSE 1.51 (<1.7) ESV (Teich) 23.40 mL LV Diastology E Decel Time 177.00 (160-240 msec) E/A Ratio 0.5 MED E' 7.90 (< 7 cm/sec) E'/MED E' Ratio 7.92 (>14) LAT E' 5.90 (<10 cm/sec) E/LAT E' Ratio 10.61 (>14) Aortic Valve AO Peak GR. 6.80 mmHg Mitral Valve MV E Max Cody. 63.00 (40-130 cm/s) MV A Velocity 115.00 (40-130 cm/s) E/A Ratio 0.55 MV Decel. Time 177.00 (160-240 ms) MV PHT 52.00 ms Pulmonary Valve PV Peak Velocity 82.00 (50-150 cm/s) Tricuspid Valve TR P. Velocity 268.00 cm/s RAP Estimate 10.00 mmHg RVSP 38.80 mmHg Left Ventricle Left atrium is mildly enlarged, left ventricle is normal size, mild concentric left ventricular hypertrophy, estimated ejection fraction 55% with no regional wall motion abnormality, grade 1 diastolic dysfunction seen without tissue Doppler evidence of atrial atrial pressure. Right Ventricle Right atrium right ventricle mildly enlarged with normal contractility. Aortic Valve Aortic valve is thickened and calcified without aortic stenosis aortic insufficiency. Mitral Valve Mitral valve leaflets are minimally thickened, there is mild mitral regurgitation. Tricuspid Valve Tricuspid grossly normal, there is mild tricuspid regurgitation, tricuspid rotation jet velocity is inadequate for calculation of the right ventricular systolic pressure. Pulmonic Valve Pulmonic valve is poorly visualized. Great Vessels Aortic root is normal size. Inferior vena cava normal size with normal inspiratory collapse. Pericardium No significant pericardial effusion noted. Conclusion 1. Mild biatrial enlargement, normal left ventricular size, mild concentric left ventricular hypertrophy, estimated ejection fraction 55% with no regional wall motion abnormality, grade 1 diastolic dysfunction seen without tissue Doppler evidence of raise left atrial pressure. 2. Mildly enlarged right ventricle with normal contractility. 3. Mild mitral and tricuspid rotation. 4. No significant pericardial effusion. 5. Inferior vena cava normal size and normal inspiratory collapse. Electronically signed by : Amaury Ly MD 07/24/2021 16:50:35
--- NOTE | 2021-07-24 12:50 | CA_ITS ---
FINAL REPORT TECHNIQUE: Color Doppler, duplex Doppler and goode scale sonography of the bilateral neck arterial vasculature was performed. Velocities were measured in the carotid arteries. Stenosis evaluation based on the validated velocity criteria. CLINICAL HISTORY: left carotid bruit FINDINGS: The peak systolic velocity of the right common carotid artery is 54 cm/s. The peak systolic velocity of the right internal carotid artery is 135 cm/s and end diastolic velocity 26 cm/s. The ICA/CCA ratio is 2.95. A small amount of plaque is present. The right external carotid artery is patent. The right vertebral artery is patent with antegrade flow. The peak systolic velocity of the left common carotid artery is 75 cm/s. The peak systolic velocity of the left internal carotid artery is 547 cm/s and end diastolic velocity 203 cm/s. The ICA/CCA ratio is 9.36. A large amount of plaque is present. The left external carotid artery is patent.The left vertebral artery is patent with antegrade flow. IMPRESSION: Less than 50% carotid stenosis on the left. Greater than 70% carotid stenosis on the right. If indicated, CTA or MRA could further evaluate. Reviewed, Interpreted and Dictated by Leonardo Flanagan III, MD Transcribed by Mireille Bell Authenticated and . [facility]
--- NOTE | 2021-07-24 13:45 | HMH.ITSHM ---
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 []LISINOPRIL GLIMEPIRIDE BISOPROLOL ATORVASTATIN ASA AMLODIPINE
== END ==
PROVIDERS: PCP Internal Medicine Adolescent Medicine; Visit Provider Nurse Practitioner Family
DX: E11.9 Type 2 diabetes mellitus without complications (principal); E78.5 Hyperlipidemia, unspecified; I10 Essential (primary) hypertension; I25.10 Atherosclerotic heart disease of native coronary artery without angina pectoris; R06.00 Dyspnea, unspecified; R53.1 Weakness; R94.31 Abnormal electrocardiogram [ECG] [EKG]; R09.89 Other specified symptoms and signs involving the circulatory and respiratory systems; Z79.84 Long term (current) use of oral hypoglycemic drugs
CPT/HCPCS: 78452; 93017; 93306; 93880; A9502; J0280; J2785

== ENCOUNTER → 2021-07-30 12:49 | Outpatient (CLI) | payer MEDICARE, SELFPAY ==
--- NOTE | 2021-07-30 12:56 | CT_ITS ---
FINAL REPORT TECHNIQUE: Thin section axial CT with IV contrast supplemented with multiplanar reconstruction under CT angiogram protocol. This study was performed with techniques to keep radiation doses as low as reasonably achievable (ALARA). Individualized dose reduction techniques using automated exposure control or adjustment of mA and/or kV according to the patient's size were employed. NASCET criteria was utilized during interpretation. CLINICAL HISTORY: CORONARY ARTERY STENOSIS FINDINGS: Aortic arch: Arch shows no significant narrowing. Great vessel origins are widely patent. Right carotid: No significant stenosis is seen of the cervical common carotid artery. There is heavily calcified plaque at the carotid bulb with approximately 50% stenosis. There is mild stenosis of the distal internal carotid artery. The external carotid artery is patent. The right vertebral artery is patent. Left carotid: No significant stenosis is seen of the cervical common carotid artery. There is heavily calcified plaque at the level of the carotid bulb. There is 70% stenosis of the left internal carotid artery at the bulb. The more distal internal carotid artery is patent without significant stenosis. The left vertebral artery is patent. Vertebral: Right vertebral artery is dominant. No significant stenosis is present. IMPRESSION: 70% stenosis of the left carotid bulb, 50% stenosis of the right carotid bulb. Reviewed, Interpreted and Dictated by Leonardo Flanagan III, MD Transcribed by Rekha Duong Authenticated and [facility]
== END ==
PROVIDERS: PCP Internal Medicine Adolescent Medicine; Visit Provider Nurse Practitioner
DX: E11.9 Type 2 diabetes mellitus without complications (principal); E78.5 Hyperlipidemia, unspecified; I10 Essential (primary) hypertension; I25.10 Atherosclerotic heart disease of native coronary artery without angina pectoris; R06.00 Dyspnea, unspecified; R09.89 Other specified symptoms and signs involving the circulatory and respiratory systems; R42 Dizziness and giddiness; R94.31 Abnormal electrocardiogram [ECG] [EKG]; I65.23 Occlusion and stenosis of bilateral carotid arteries; Z79.84 Long term (current) use of oral hypoglycemic drugs
CPT/HCPCS: 70498; Q9967

== ENCOUNTER → 2022-10-14 09:31 | Outpatient (POV) | payer MEDICARE, SELFPAY | PROVIDERS: Visit Provider Dermatology | DX: Z00.00 Encounter for general adult medical examination without abnormal findings (principal) ==

== ENCOUNTER 2023-02-11 13:14 | Outpatient (CLI) | payer MEDICARE, SELFPAY ==
--- NOTE | 2023-02-11 | XR_ITS ---
FINAL REPORT CLINICAL HISTORY: soa, cough COMPARISON: 03/18/2018 FINDINGS: Two views of the chest were obtained. The heart size and pulmonary vascularity are within normal limits. The mediastinum is normal. There is worsening of persistent interstitial opacities since the prior exam, would favor interstitial fibrosis. There is worsening of the left lung opacity, and superimposed pneumonia is not excluded. There is no pneumothorax. The bony thorax is intact. IMPRESSION: Worsening of persistent interstitial opacities since the prior exam, favor interstitial fibrosis. Worsening of the left lung opacity, and superimposed pneumonia is not excluded. Recommend follow-up radiographs to document improvement. Reviewed, Interpreted and Dictated by Leonardo Flanagan III, MD Transcribed by Suzanna Mcdowell Authenticated and [facility]
== END 2023-02-11 23:59 ==
LOC: RAD 13:16
PROVIDERS: PCP Internal Medicine Adolescent Medicine; Visit Provider Internal Medicine Adolescent Medicine
DX: J18.0 Bronchopneumonia, unspecified organism (principal); R05.1 Acute cough
CPT/HCPCS: 71046

== ENCOUNTER 2023-04-21 13:54 | Outpatient (POV) | payer MEDICARE, SELFPAY | END 2023-04-21 23:59 | disposition home or self-care (01) | LOC: SC 13:54 | PROVIDERS: PCP Internal Medicine Adolescent Medicine; Visit Provider Dermatology | DX: Z00.00 Encounter for general adult medical examination without abnormal findings (principal) ==

== ENCOUNTER 2023-06-15 15:32 | Outpatient (CLI) | payer MEDICARE, SELFPAY ==
--- NOTE | 2023-06-15 15:44 | XR_ITS ---
FINAL REPORT CLINICAL HISTORY: soa, nonsmoker COMPARISON: 03/18/2018 FINDINGS: Two views of the chest were obtained. The heart size and pulmonary vascularity are within normal limits. The mediastinum is normal. There is moderate fibrosis or scarring, worse compared to the prior study. There is no pneumothorax. The bony thorax is intact. IMPRESSION: Worsening moderate fibrosis or scarring Reviewed, Interpreted and Dictated by Leonardo Flanagan III, MD Transcribed by Sarah Andrews Authenticated and [facility]
== END 2023-06-15 23:59 | disposition home or self-care (01) ==
LOC: RAD 15:33
PROVIDERS: PCP Internal Medicine Adolescent Medicine; Visit Provider Internal Medicine Adolescent Medicine
DX: R06.09 Other forms of dyspnea (principal); R63.4 Abnormal weight loss
CPT/HCPCS: 71046

== ENCOUNTER 2023-06-16 11:47 | Outpatient (CLI) | payer MEDICARE, SELFPAY ==
[2023-06-16 12:35] LABS: Basophils # 0.1 K/mm3 (0-0.2); Basophils % 0.9 % (0.1-2.0); Eosinophils # 0.2 K/mm3 (0.0-0.4); Eosinophils % 1.8 % (0.1-12.0); Hemoglobin 14.2 g/dL (12.2-16.2); Lymphocytes # 3.1 K/mm3 (0.7-4.5); Lymphocytes % 36.4 % (10-50); Mean Corpuscular HGB Conc 32.3 g/dL (31.8-35.4); Mean Corpuscular Hemoglobin 29.2 pg (27.0-31.2); Mean Corpuscular Volume 90.3 fl (81-99); Mean Platelet Volume 7.9 fl (7.4-10.4); Monocytes # 0.5 K/mm3 (0.1-1.0); Monocytes % 5.3 % (1.7-9.3); Neutrophils # 4.7 K/mm3 (1.8-7.8); Neutrophils % 55.8 % (37.0-80.0); Platelet Count 236 K/mm3 (142-424); Red Blood Count 4.87 M/mm3 (4.20-5.40); Red Cell Distribution Width 14.2 % (11.5-17.5); White Blood Count 8.5 K/mm3 (4.8-10.8)
[2023-06-16 13:30] LABS: Chloride 104 mmol/L (98-107); Sodium 137 mmol/L (136-145)
[2023-06-16 13:31] LABS: Potassium 4.3 mmoL/L (3.5-5.1)
[2023-06-16 13:33] LABS: Alanine Aminotransferase 16 U/L (12-78); Alkaline Phosphatase 82 U/L (38-126); Anion Gap 10.3 mEq/L (5-15); Aspartate Amino Transferase 32 U/L (14-36); Bilirubin,Total 0.6 mg/dl (0.2-1.3); Blood Urea Nitrogen 16 mg/dl (7-17); Carbon Dioxide 27 mmol/L (22.0-30.0); Estimated Glomerular Filt Rate 95 ml/min (>60); GFR (African American) 115 ML/MIN (>60)
[2023-06-16 13:34] LABS: Albumin Level 3.9 g/dl (3.5-5.0); Albumin/Globulin Ratio 1.3 (1.1-1.8); Calcium 9.8 mg/dl (8.4-10.2); Glucose 108 mg/dl (74-100); Total Protein,Serum 6.9 g/dl (6.3-8.2)
[2023-06-16 13:58] LABS: Free Thyroxine Index 3.2 ug/dL (5.93-13.13); Triiodothryronine (T3) Uptake 35 % (23.5-40.5)
[2023-06-16 14:12] LABS: Thyroid Stimulating Hormone 1.81 uIU/mL (0.465-4.68)
[2023-06-16 14:16] LABS: 25-OH Vitamin D, Total 58.5 ng/mL (30-100)
[2023-06-16 16:35] LABS: Vitamin B12 795 pg/mL (239-931)
== END 2023-06-16 23:59 | disposition home or self-care (01) ==
LOC: LAB 11:49
PROVIDERS: PCP Internal Medicine Adolescent Medicine; Visit Provider Internal Medicine Adolescent Medicine
DX: R63.4 Abnormal weight loss (principal); E55.9 Vitamin D deficiency, unspecified; R06.09 Other forms of dyspnea
CPT/HCPCS: 36415; 80053; 82306; 82607; 84436; 84443; 84479; 85025

== ENCOUNTER 2023-06-22 15:07 | Outpatient (CLI) | payer MEDICARE, SELFPAY ==
--- NOTE | 2023-06-22 | CA_ITS ---
APPROVED REPORT EXAM: Comprehensive 2D, Doppler, and color-flow Echocardiogram Credit Professional: Rosanne Gill RT(R) Ht: 5 ft 3 in Wt: 100lbs BSA: 1.44 BP: 134/82 mmHg Indications: KOWALSKI, CAD, HTN, DM 2D Dimensions Left Atrium 3.33 cm F: 2.7 - 3.8 LVEF (Rodriguez's) 58.70 % F: 54 - 74 LV Volume 60.50 mL F: 46 - 106 LV Volume Index 42.0 mL/m2 F: 29 - 61 LA Volume 21.10 mL LA Volume Index 14.65 mL/m2 (M/F) 16-34 EF AP4 54.60 % EF AP2 60.9 % EF BP 58.7 % GL Strain -15.5 % M-Mode Dimensions RVDd 3.25 cm (0.9-2.6) LA Diam 3.77 cm (1.9-4.0) LVDd 4.14 cm (3.5-5.7) LVDs 2.82 cm (3.5-5.7) IVSd 0.93 cm (0.6-1.1) PWd 0.82 cm (0.6-1.1) EF (Teich) 60.30% FS 31.90% EDV (Teich) 75.90 mL ESV (Teich) 30.10 mL LV Diastology E Decel Time 217 (160-240 msec) E/A Ratio 0.7 Mitral Valve MV E Max Cody. 77.0 (40-130 cm/s) MV A Velocity 116.0 (40-130 cm/s) E/A Ratio 0.66 MV PHT 63.0 ms Tricuspid Valve TR P. Velocity 285.00 cm/s RAP Estimate 10.00 mmHg RVSP 42.40 mmHg Left Ventricle The left ventricle is normal size. The left ventricular systolic function is normal. The left ventricular ejection fraction is within the normal range. There is increased LV wall thickness. There is normal LV segmental wall motion. Transmitral Doppler flow pattern suggests impaired LV relaxation. LVEF is 60%. Right Ventricle The right ventricle is normal size. The right ventricular systolic function is normal. Atria The left atrium is mildly dilated. The right atrium is mildly dilated. There is no Doppler evidence of interatrial shunt. Aortic Valve The aortic valve is mildly thickened. There is no aortic valvular stenosis. Trace aortic regurgitation. Mitral Valve The mitral valve leaflets are mildly thickened. No evidence of mitral valve stenosis. Mild mitral regurgitation. Tricuspid Valve The tricuspid valve leaflets are thin and pliable. Mild tricuspid regurgitation. RVSP is 35 to 40 mmHg. Pulmonic Valve The pulmonary valve is normal in structure. Trace pulmonic regurgitation. Great Vessels The aortic root is normal in size. The ascending aorta is normal in size. IVC is normal in size and collapses >50% with inspiration. Pericardium There is no pericardial effusion. Other Information Study Quality: Fair Conclusion Normal biventricular systolic function. Biatrial dilation. Mild MR, mild TR. Trace AI. Electronically signed by : Ying Almanza MD 06/24/2023 11:14:41
== END 2023-06-22 23:59 | disposition home or self-care (01) ==
LOC: RT 15:08
PROVIDERS: PCP Internal Medicine Adolescent Medicine; Visit Provider Internal Medicine Adolescent Medicine
DX: R06.09 Other forms of dyspnea (principal); R94.31 Abnormal electrocardiogram [ECG] [EKG]; R63.4 Abnormal weight loss; I25.10 Atherosclerotic heart disease of native coronary artery without angina pectoris; I10 Essential (primary) hypertension
CPT/HCPCS: 93306

== ENCOUNTER 2023-07-10 10:14 | Outpatient (CLI) | payer MEDICARE, SELFPAY ==
--- NOTE | 2023-07-10 10:20 | CT_ITS ---
FINAL REPORT TECHNIQUE: Axial images were obtained from the lung apex to the mid abdomen by computed tomography. Coronal reformatted images were obtained. This study was performed with techniques to keep radiation doses as low as reasonably achievable, (ALARA). Individualized dose reduction techniques using automated exposure control or adjustment of mA and/or kV according to the patient''s size were employed. CLINICAL HISTORY: LUNG FIBROSIS COMPARISON: None FINDINGS: There is diffuse subpleural interstitial septal thickening compatible with UIP/IPF. Findings are more pronounced in the lung bases. There is mild bronchiectasis. No focal infiltrate identified. No pleural or pericardial effusion is seen . No adenopathy or mass lesion is present . 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 Reviewed, Interpreted and Dictated by Roney Conway MD Transcribed by Sarah Andrews Authenticated and [facility]
== END 2023-07-10 23:59 | disposition home or self-care (01) ==
LOC: RAD 10:15
PROVIDERS: PCP Internal Medicine Adolescent Medicine; Visit Provider Internal Medicine Adolescent Medicine
DX: J84.10 Pulmonary fibrosis, unspecified (principal)
CPT/HCPCS: 71250

== ENCOUNTER 2024-02-29 11:17 | Emergency (ER) | payer MEDICARE, SELFPAY ==
[2024-02-29] VITALS (12 sets, daily range): BP systolic 120–156; BP diastolic 63–78; PULSE 79–92; RESP 18–20; TEMP 36.8; O2SAT 79–97; BMI 17.6
--- NOTE | 2024-02-29 11:15 | ECG_ITS ---
APPROVED REPORT Exam: Resting ECG HR:80 bpm ECG Measurements Heart Rate 80 AXES AR 142 P 71 QRSd 93 QRS -57 QT 352 T 71 QTc 388 Conclusion SINUS RHYTHM POSSIBLE LEFT ATRIAL ENLARGEMENT [-0.1mV P-WAVE IN V1/V2] LEFT ANTERIOR FASCICULAR BLOCK [QRS AXIS <= -45, QR IN I, RS IN II] POSSIBLE LEFT VENTRICULAR HYPERTROPHY [VOLTAGE CRITERIA PLUS LAE OR QRS WIDENING] No STEMI Electronically signed by : SHELLEY YIN, 02/29/2024 16:32:43
[2024-02-29 11:36] LABS: Coronavirus 19, PCR Not Detected (NotDetected); Influenza A, PCR Not Detected (NotDetected); Influenza B, PCR Not Detected (NotDetected)
[2024-02-29 11:38] LABS: Basophils # 0.1 K/mm3 (0-0.2); Basophils % 0.6 % (0.1-2.0); Eosinophils # 0.5 K/mm3 (0.0-0.4); Eosinophils % 4.6 % (0.1-12.0); Hematocrit 40.9 % (37.0-47.0); Hemoglobin 13.7 g/dL (12.2-16.2); Lymphocytes # 1.7 K/mm3 (0.7-4.5); Lymphocytes % 16.8 % (10-50); Mean Corpuscular HGB Conc 33.5 g/dL (31.8-35.4); Mean Corpuscular Hemoglobin 28.8 pg (27.0-31.2); Mean Corpuscular Volume 85.9 fl (81-99); Mean Platelet Volume 9.2 fl (7.4-10.4); Monocytes % 9.5 % (1.7-9.3); Neutrophils # 7.1 K/mm3 (1.8-7.8); Neutrophils % 68.2 % (37.0-80.0); Platelet Count 290 K/mm3 (142-424); Red Blood Count 4.76 M/mm3 (4.20-5.40); White Blood Count 10.4 K/mm3 (4.8-10.8)
--- NOTE | 2024-02-29 11:40 | HMH.EDGENADL ---
Discharge Plan Disposition Patient Disposition: Home, Self-Care Condition: Good Prescriptions Prescriptions: No Action bisoprolol fumarate 5 mg tablet 5 mg PO QDAY Qty: 30 5RF atorvastatin 20 MG tablet 20 mg PO DAILY lisinopril 20 tablet 20 mg PO BID Patient Comments: amlodipine 5 MG tablet 5 mg PO DAILY Patient Comments: aspirin 81 MG tablet,delayed release (DR/EC) 81 mg PO DAILY glimepiride 2 mg tablet 2 mg PO DAILY Patient Comments: Referrals Follow up/Referrals: Patricia Sarabia MD [Physician] - See instructions Francisco Javier West MD [Primary Care Provider] - See instructions Vu Villareal MD [Staff Physician] - See instructions Todd Almanza MD [Staff Physician] - See instructions Activity Restrictions/Add. Instructions Additional Instructions/Restrictions: You were evaluated in the emergency department today. Your CT scans demonstrate a renal cyst, which is likely nothing to worry about. Please follow-up for evaluation of this. At this time, your imaging shows worsening honeycombing of your lungs consistent with pulmonary fibrosis, and you also have enlarged lymph nodes in your mediastinum. Radiology here has recommended a PET scan as an outpatient, for which you can follow-up with your primary care provider to help arrange. I also recommend close follow-up with pulmonology. We do have Dr. Sarabia here if you wish to follow up here. You may call to schedule an appointment. If you wish to see cardiology evaluation to rule out cardiac causes of any sort of shortness of breath, you may also choose to follow-up with them in clinic. I provided their information. Clinical Impressions Clinical Impression: Chronic respiratory failure, Dehydration, Acute hyponatremia, Pulmonary fibrosis, Renal cyst Instructions Patient Instructions: Idiopathic Pulmonary Fibrosis, DI for Respiratory Failure Print Language Print Language: Yoruba Discharge ED Provider: Noemi De Santiago General Adult HPI General Chief complaint: Weakness Stated complaint: SOB Time Seen by Provider: 02/29/24 11:24 Mode of Arrival: EMS Source of Information: Patient Limitations: No Limitations Description of Symptoms (Recalled from ER Triage Doc. by RN): pt is here today for generalized werakness that is getting worse over the last few weeks, denies any pain or discomfort says she does get soa only ujnder excertion History of Present Illness HPI narrative: This patient is an 88-year-old female with a history of pulmonary fibrosis presenting to the emergency department for evaluation with concern for general weakness and shortness of breath. Patient states that she has had progressively worsening shortness of breath and general weakness that she has been seeing Dr. West for for a very long time. She notes that she has had multiple x-rays and CT scans done of her chest and has been told that she has lung scarring. She was referred to a crown assembly machine set up mechanic in [place] and she states that the crown assembly machine set up mechanic told her there was nothing really they could do for her lung scarring besides supplemental oxygen. She states that initially they did not do this, but now she thinks she is to the point that she needs it because her symptoms have become so severe. For the last week, she states she has had increasing dry cough and shortness of breath, especially with exertion. She states she has no energy and is generally weak. She also has no appetite with unintentional weight loss and very poor oral intake. She notes she does not really want any other imaging or significant workup at this time, as she states that she has been seen multiple times for this by Dr. West. She was hoping to see if we can set her up with oxygen to go home with. Related Data Home Medications ?Medication ?Instructions ?Recorded ?Confirmed amlodipine 5 mg tablet 5 mg PO DAILY heart 05/29/17 07/31/21 aspirin 81 mg tablet,delayed 81 mg PO DAILY heart health 05/29/17 07/31/21 release atorvastatin 20 mg tablet 20 mg PO DAILY Cholesterol 05/29/17 07/31/21 lisinopril 20 mg tablet 20 mg PO BID bp 05/29/17 07/31/21 glimepiride 2 mg tablet 2 mg PO DAILY Diabetes 07/16/21 07/31/21 Previous Rx's ?Medication ?Instructions ?Recorded bisoprolol fumarate 5 mg tablet 5 mg PO QDAY #30 tabs 07/16/21 Allergies Allergy/AdvReac Type Severity Reaction Status Date / Time Penicillins (PENICILLINS) Allergy Unknown Verified 07/31/21 10:16 Quinolones (QUINOLONES) Allergy Unknown Verified 07/31/21 10:16 epinephrine Allergy Verified 07/31/21 10:16 [facility] Disclaimer: The information contained in this section may have been updated after the patient was seen, as this information can be updated by other users. Medical History Carotid artery stenosis Fatigue Social History Smoking Status: Never smoker alcohol intake: never current occupational status: retired Travel in the last 8 weeks: Inside the [place] household members: spouse housing: house caffeine: Yes Other Medical History Have you received the Flu Vaccine for this season: No Have you received the Pneumonia Vaccine: Yes ROS Obtained: Yes All systems reviewed & no additional complaints except as documented Physical Exam General General appearance: alert, in no apparent distress and cachectic Comment: Thin, frail, cachectic Head Head exam: atraumatic and normocephalic Eye Eye exam: Present normal appearance, PERRL and EOMI ENT ENT exam: Present mucous membranes dry and normal external ear exam Neck Neck exam: Present normal inspection, full ROM and trachea midline; Absent tenderness Chest Chest inspection: Present normal inspection and symmetric chest wall rise; Absent tenderness Respiratory Respiratory exam: Present other (Diminished breath sounds in the left lung, dry cough); Absent respiratory distress, wheezes, stridor or accessory muscle use Cardiovascular Cardiovascular exam: Present regular rate and normal rhythm Abdominal Exam Abdominal exam: Present soft; Absent distention, tenderness or guarding Extremities Exam Extremities exam: Present normal inspection, full ROM and normal capillary refill; Absent tenderness or edema Back Exam Back exam: Present normal inspection and full ROM; Absent tenderness Neurological Exam Neurological exam: Present alert, oriented X3, CN II-XII intact and normal gait; Absent motor sensory deficit Psychiatric Psychiatric exam: Present normal affect and normal mood Skin Skin exam: Present warm and dry Medical Decision Making Medical Records Medical records reviewed: Yes I reviewed the patient's medical records. Screening: Per USPSTF and CDC recommendations, given the prevalence of disease in our region, it is our hospital?s policy to screen for HIV and viral Hepatitis for all patients aged 18 and over and those with ongoing risk factors. Lm Inquiry Pt receiving controlled substance: No Vital Signs: 02/29/24 11:17 02/29/24 11:32 02/29/24 11:45 Temperature 98.2 F Temperature Source Oral Pulse Rate 86 81 Pulse Rate [Right Radial] 84 Respiratory Rate 20 Blood Pressure Blood Pressure [Right Arm] 137/63 Blood Pressure Mean [Right Arm] 87 Blood Pressure Source 02 Sat by Pulse Oximetry 96 97 95 Oxygen Delivery Method Room Air 02/29/24 11:59 02/29/24 12:01 02/29/24 12:15 Temperature Temperature Source Pulse Rate 81 86 84 Pulse Rate [Right Radial] Respiratory Rate Blood Pressure 120/65 Blood Pressure [Right Arm] Blood Pressure Mean [Right Arm] Blood Pressure Source 02 Sat by Pulse Oximetry 96 95 95 Oxygen Delivery Method 02/29/24 12:35 02/29/24 12:45 02/29/24 13:00 Temperature Temperature Source Pulse Rate 92 H 82 79 Pulse Rate [Right Radial] Respiratory Rate Blood Pressure 143/69 H 136/70 Blood Pressure [Right Arm] Blood Pressure Mean [Right Arm] Blood Pressure Source 02 Sat by Pulse Oximetry 79 L 95 96 Oxygen Delivery Method Room Air 02/29/24 13:15 02/29/24 13:30 02/29/24 16:17 Temperature 98.2 F Temperature Source Oral Pulse Rate 80 82 81 Pulse Rate [Right Radial] Respiratory Rate 18 Blood Pressure 154/73 H 156/78 H Blood Pressure [Right Arm] Blood Pressure Mean [Right Arm] Blood Pressure Source Automatic Cuff 02 Sat by Pulse Oximetry 87 L 94 L Oxygen Delivery Method Room Air Room Air Room Air Lab Data Lab results reviewed: Yes I reviewed the patient's lab results. Lab Results 02/29/24 11:10: WBC 10.4, RBC 4.76, Hgb 13.7, Hct 40.9, MCV 85.9, MCH 28.8, MCHC 33.5, RDW 12.0, Plt Count 290, MPV 9.2, Neut % (Auto) 68.2, Lymph % (Auto) 16.8, [place] % (Auto) 9.5 H, Eos % (Auto) 4.6, Baso % (Auto) 0.6, Neut # (Auto) 7.1, Lymph # (Auto) 1.7, [place] # (Auto) 1.0, Eos # (Auto) 0.5 H, Baso # (Auto) 0.1, Sodium 131 L, Potassium 4.8, Chloride 96 L, Carbon Dioxide 28, Anion Gap 11.8, BUN 26 H, Creatinine 0.70, Estimated Creat Clear 26, Estimated GFR 79, Est GFR ( Amer) 96, Glucose 183 H, Calcium 8.9, Phosphorus 4.2, Magnesium 1.6, Total Bilirubin 0.4, AST 44 H, ALT 18, Alkaline Phosphatase 64, NT-Pro-B Natriuret Pep 238, Total Protein 7.0, Albumin 3.6, Globulin 3.4 H, Albumin/Globulin Ratio 1.1, TSH 1.93, Thyroxine (T4) 8.4, SARS-CoV-2 (PCR) Not detected, Influenza A Untype (PCR) Not detected, Influenza Type B (PCR) Not detected 02/29/24 12:00: VBG pH 7.44 H, VBG pCO2 35.1, VBG pO2 52.2 H, VBG HCO3 23.1, VBG Total CO2 24.2, VBG O2 Saturation 86.9 H, VBG Base Excess -1.1, VBG Lactic Acid 1.5 02/29/24 12:28: Urine Color Yellow, Urine Appearance Clear, Urine pH 6.0, Ur Specific [place] 1.015, Urine Protein Negative, Urine Glucose (UA) Negative, Urine Ketones Negative, Urine Blood Negative, Urine Nitrate Negative, Urine Bilirubin Negative, Urine Urobilinogen 0.2, Ur Leukocyte Esterase 1+ A, Urine RBC None, Urine WBC 5-10, Ur Squamous Epith Cells 3-5, Urine Bacteria Trace 02/29/24 11:10 02/29/24 11:10 Orders (Tests/Meds): ED MEDICATIONS Generic Name Dose Route Start Last Admin Trade Name Freq PRN Reason Stop Dose Admin Sodium Chloride 10 ml 02/29/24 14:39 02/29/24 14:40 Sodium Chloride 0.9% 10ml Syr (Rad Only) IV 03/30/24 14:38 10 ml NEEDED PRN Administration Maintain IV Site Discontinued Medications Generic Name Dose Route Start Last Admin Trade Name Freq PRN Reason Stop Dose Admin Lactated Ringer's 1,000 mls @ 999 mls/hr 02/29/24 12:36 02/29/24 12:49 Lactated Ringer's 1000 Ml Bag IV 02/29/24 13:36 999 mls/hr .Q1H1M ONE Administration Iopamidol 80 ml 02/29/24 14:39 02/29/24 14:40 Iopamidol-370 (76%);100ml Bottle IV 02/29/24 14:40 80 ml ONCE ONE Administration Sodium Chloride 50 ml 02/29/24 14:39 02/29/24 14:40 0.9 % Sodium Chloride 50 Ml Vial IV 02/29/24 14:40 50 ml ONCE ONE Administration ORDERS Category Date Time Status CT angio chest PE protocol Stat Cat Scan 02/29/24 14:17 Completed Care Management Consult [Consult to Case Management] [ Cons 02/29/24 12:52 Active CONS] Routine CXR 2 view (NOT portable) [XR chest 2V] Stat Exams 02/29/24 13:09 Completed POCUS Point of Care (ER Only) Stat Exams 02/29/24 11:36 Completed BNP [NT Pro Brain Natriuretic Pep.] Stat Lab 02/29/24 11:10 Completed Complete Blood Count Auto Diff Stat Lab 02/29/24 11:10 Completed Comprehensive Metabolic Panel Stat Lab 02/29/24 11:10 Completed MAG [Magnesium] Stat Lab 02/29/24 11:10 Completed PHOS [Phosphorous] Stat Lab 02/29/24 11:10 Completed Rapid PCR Covid and Flu A/B Stat Lab 02/29/24 11:10 Completed T4 (Thyroxine) Stat Lab 02/29/24 11:10 Completed TSH [Thyroid Stimulating Hormone] Stat Lab 02/29/24 11:10 Completed UA [Urinalysis and Microscopic] Stat Lab 02/29/24 12:28 Completed Urine Culture Stat Micro 02/29/24 12:28 Received VBG [Venous Blood Gas] Stat RT 02/29/24 12:00 Completed ECG Data Tracing #1: I reviewed this ECG and interpreted as documented below: Normal sinus rhythm with a ventricular rate of 80 bpm. Left anterior fascicular block. Otherwise, normal intervals including QTc of 308 ms. No acute STEMI. ECG initial impression date: 02/29/24 ECG initial impression time: 11:17 Medical Decision Narrative: In summary, this patient is a 88-year-old female presenting to the Emergency Department for evaluation of chronic shortness of breath, general weakness, and poor appetite. Symptoms are acutely worse over the last week. Differential diagnoses considered include but are not limited to pulmonary fibrosis, malignancy, pneumonia, respiratory failure, viral syndrome. Ruling out the most morbid conditions drove assessment. It should be noted patient's history includes pulmonary fibrosis which is not at goal therapy. This complicates all aspects of care by increasing patient's risk for morbidity. I reviewed patient's past medical records and noted reported history of diabetes, but the patient's family states that she is only on medications for acid reflux and high blood pressure.. I noted most recent echocardiogram and chest CT scan from June 2023. Echo demonstrated normal BiV systolic dysfunction with biatrial dilatation with mild MR and TR, trace AI. Otherwise, echo was reassuring. CT scan of the chest without contrast demonstrated interstitial lung disease suggestive of UIP/IPF. On exam, the patient is thin, cachectic, appears older than stated age. She has diminished breath sounds in the left lung but no significant increased work of breathing. No wheezing or rhonchi. She does have a dry cough. Vitals are normal on cardiac telemetry. I recommended to patient repeat lung imaging as well as heart ultrasound to make sure that she does not have any acute pathology such as pneumonia, acute heart failure, pericardial effusion, PE, but she states she does not want any more imaging because it is not good for you to have repeated imaging. She states that her symptoms are not new and been going on for very long time, so she is not concerned about something acute. She notes she was told there was nothing that she could do about her lungs except supplemental oxygen, and that is why she came here. I advised her my concerns and that I felt the benefit of obtaining repeat imaging outweighed the risk, however she is adamant she does not want that. She did allow us to obtain lab evaluation. Workup included CBC, CMP, magnesium, phosphorus, BNP, TSH, T4, VBG, urinalysis. EKG was obtained and is reassuring. I had an interactive discussion with care management who advised that we would not be able to give her home oxygen from the ER today without documentation of low O2 saturation. Her O2 saturation is normal on room air, will trial ambulatory O2. Patient was found to be 95% on room air at rest on my initial evaluation. Patient ambulated to the bathroom and she dropped to 88% on room air. 2 L nasal cannula was placed on the patient while ambulating, and patient returned to 96% on 2 L nasal cannula. Lab work demonstrated reassuring CBC without significant leukocytosis. VBG demonstrates no significant respiratory acidosis. She does have concerns for dehydration on chemistry with mild hyponatremia, elevated BUN. BNP is not significantly elevated. Urine is contaminated with skin cells but is not grossly concerning for infection and she does not have any significant urinary symptoms. On reassessment, patient expresses that she is willing to undergo radiographic imaging to rule out acute superimposed infection or other new illness on top of her usual pulmonary scarring. I did obtain chest x-ray, which on my independent interpretation was concerning for increased scarring and pulmonary fibrosis. I performed bedside cardiac ultrasound which is not overtly concerning with no pericardial effusion or obvious significant gross wall motion abnormality. I discussed with the patient then obtaining CT scan for further assessment of the patient's lung changes on x-ray, as we do not have a recent one since June. She is agreeable to this. CT scan demonstrated on my independent interpretation significant honeycombing and pulmonary fibrosis. Please see radiology read for final interpretation. There is no obvious superimposed infection, so I do not feel antibiotics or other intervention are indicated at this time. I do not feel that she is volume overloaded, as she actually appears to be very volume down. Given her chronic respiratory failure though it has been worsening as well as documented hypoxia, I feel she would benefit from supplemental oxygen. I had an interactive discussion with care management who helped set the patient up with home oxygen. Medical supply delivered oxygen. At this time, I feel the patient is stable and appropriate for discharge home with close follow-up with primary care, pulmonology, and also with cardiology. She was incidentally found to have mediastinal lymphadenopathy as well as a left renal cyst for which I advised outpatient follow-up as well. Procedures Limited Ultrasound Interpretation:: Limited cardiac ultrasound Indication: Shortness of breath Identified cardiac views: [-Cardiac parasternal long axis] [-Cardiac parasternal short axis] [-Cardiac apical four-chamber] Findings: [-Cardiac activity present -Gross wall motion normal -Pericardial effusion absent -Right heart strain absent] Impression: -[From above] Images were saved to permanent archive The study was technically adequate CPT: 92024 This study was performed by me, and I personally interpreted all images/videos. Based on my clinical judgement, these images were adequate and did not necessitate further imaging. Critical Care Critical Care Time Critical Care Time: No
[2024-02-29 11:57] LABS: Albumin Level 3.6 g/dl (3.5-5.0); Chloride 96 mmol/L (98-107); Potassium 4.8 mmoL/L (3.5-5.1); Sodium 131 mmol/L (136-145)
[2024-02-29 12:00] LABS: Alanine Aminotransferase 18 U/L (12-78); Albumin/Globulin Ratio 1.1 (1.1-1.8); Alkaline Phosphatase 64 U/L (38-126); Anion Gap 11.8 mEq/L (5-15); Aspartate Amino Transferase 44 U/L (14-36); Bilirubin,Total 0.4 mg/dl (0.2-1.3); Blood Urea Nitrogen 26 mg/dl (7-17); Carbon Dioxide 28 mmol/L (22.0-30.0); Creatinine Clearance Estimated 26 mL/min (50-200); Estimated Glomerular Filt Rate 79 ml/min (>60); GFR (African American) 96 ML/MIN (>60); Globulin 3.4 g/dL (1.3-3.2); Magnesium 1.6 mg/dl (1.6-2.3); Phosphorous 4.2 mg/dl (2.5-4.5)
[2024-02-29 12:01] LABS: Calcium 8.9 mg/dl (8.4-10.2); Glucose 183 mg/dl (74-100)
[2024-02-29 12:08] LABS: NT Pro Brain Natriuretic Pep. 238 pg/mL (0-450)
[2024-02-29 12:17] LABS: T4 (Thyroxine) 8.4 ug/dl (5.53-11.0)
[2024-02-29 12:18] LABS: Lactate Venous 1.5 mmol/L (0.4-2.0); VBG Base Excess -1.1 mmol/L (-2.4-2.3); VBG HCO3 23.1 mmol/L (23-30); VBG Oxygen Saturation 86.9 % (50-70); VBG PCO2 35.1 mmol/L (35-51); VBG PH 7.44 mmol/L (7.31-7.41); VBG PO2 52.2 mmol/L (28-40); VBG Total CO2 24.2 mmol/L (23-27)
[2024-02-29 12:30] LABS: Thyroid Stimulating Hormone 1.93 uIU/mL (0.465-4.68)
[2024-02-29 12:34] LABS: Microscopic, Urine URINE MICROSCOPIC (MICROSCOPIC)
[2024-02-29 12:41] LABS: Appearance,Urine CLEAR (Clear); Bilirubin,Urine Negative (Negative); Blood, Urine Negative (Negative); Color,Urine YELLOW (Yellow); Glucose,Urine (UA) Negative (Negative); Ketones,Urine Negative (Negative); Leukocyte Esterase,Urine 1+ (Negative); Nitrate,Urine Negative (Negative); Protein,Urine Negative (Negative); Specific Gravity, Urine 1.015 (1.005-1.030); Urobilinogen,Urine 0.2 EU/dl (0.2)
--- NOTE | 2024-02-29 12:41 | PC.NURSE ---
pt dropped to 88% while on room air while walking down hallway to bathroom approx 50 ft
[2024-02-29] MEDS: LACTATED RINGERS 1000ML 1,000 ML 999 ML IV (12:49)
[2024-02-29 12:52] LABS: Bacteria,Urine Trace /lpf
--- NOTE | 2024-02-29 13:09 | XR_ITS ---
FINAL REPORT TECHNIQUE: Chest PA & Lateral CLINICAL HISTORY: acute worsening in chronic SOA COMPARISON: 06/15/2023 FINDINGS: 2 views of the chest were performed. The heart size is normal. The mediastinum is within normal limits. There are coarse interstitial opacities throughout both lungs which appears more evident than on the previous exam. This may represent edema superimposed on chronic fibrosis. There is no pneumothorax. IMPRESSION: Coarse interstitial opacities throughout both lungs may represent edema superimposed on chronic fibrosis. Reviewed, Interpreted and Dictated by Cliff Hood MD Transcribed by Marely Vega Authenticated and . [facility]
--- NOTE | 2024-02-29 13:27 | PC.NURSE ---
Patient back from radiology.
--- NOTE | 2024-02-29 13:46 | PC.NURSE ---
pt's initial room air sat was 95%, she ambulated and room air sat dropped to 88%. She was placed on 2lpm nc and sat improved to 96%. dr goodman notified of this, updated her note, and I called Renetta in care management to let them know.
--- NOTE | 2024-02-29 14:17 | CT_ITS ---
FINAL REPORT TECHNIQUE: The patient was injected with IV contrast. Axial images were obtained through the chest in a PE protocol. 3-D reconstruction images were also performed. Individualized dose reduction techniques using automated exposure control or adjustment of the MA and/or KV according to patient's size were employed. CLINICAL HISTORY: acute resp failure, worsened lung scarring vs PNA COMPARISON: CT of the chest without contrast 07/10/2023 FINDINGS: Mediastinal vasculature is adequately opacified. No pulmonary artery filling defects are identified to suggest PE. There is no aortic dissection. There is no axillary adenopathy. There is significant subcarinal and right hilar adenopathy. There is a right hilar node measuring 2.2 cm in size, and a subcarinal node measuring 2.4 cm in diameter. The heart size is normal. There is no pericardial or pleural effusion. Limited images of the upper abdomen are unremarkable. There are extensive coarse peripheral interstitial opacities with honeycombing particularly at the lung bases, consistent with extensive pulmonary fibrosis, more severe than noted on the prior CT of 2023. IMPRESSION: No pulmonary embolus or dissection. Extensive subcarinal and hilar adenopathy, worse than seen on the prior exam. Extensive coarse peripheral interstitial opacities with honeycombing in the lung bases, consistent with extensive pulmonary fibrosis, also worsened since the prior exam. Recommend PET/CT for further evaluation. Reviewed, Interpreted and Dictated by Cliff Hood MD Transcribed by Suzanna Mcdowell Authenticated and [facility]
[2024-02-29] MEDS: 0.9 % SODIUM CHLORIDE 50 ML VIAL IV (14:40)
[2024-02-29] MEDS: IOPAMIDOL-370 (76%);100ML BOTTLE 80 ML IV (14:40)
[2024-02-29] MEDS: SODIUM CHLORIDE 0.9% 10ML SYR (RAD ONLY) 10 ML IV (14:40)
--- NOTE | 2024-03-04 15:13 | PC.NURSE ---
UA DISCUSSED WITH DR SANCHEZ, NEW RX SENT TO PHARMACY. PT NOTIFIED AT THIS TIME
== END 2024-02-29 16:37 | disposition home or self-care (01) ==
PROVIDERS: Emergency Provider Emergency Medicine; PCP Internal Medicine Adolescent Medicine
DX: E86.0 Dehydration (principal); N28.1 Cyst of kidney, acquired; J84.10 Pulmonary fibrosis, unspecified; E87.1 Hypo-osmolality and hyponatremia; J96.10 Chronic respiratory failure, unspecified whether with hypoxia or hypercapnia; R53.1 Weakness; R05.9 Cough, unspecified; R63.8 Other symptoms and signs concerning food and fluid intake
CPT/HCPCS: 71046; 71275; 80053; 81001; 82803; 83735; 83880; 84100; 84436; 84443; 85025; 87086; 87088; 87186; 87636; 93005; 96360; 99285; J7120; Q9967